=== PATIENT | female | born 1965 | race Caucasian/White ===

== ENCOUNTER 2018-02-16 05:27 | Observation (INO) | payer BC ==
[2018-02-16] MEDS ORDERED: NS 0.9% 1000 ML* 1,000 ML IV ONE (06:05)
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
[2018-02-16 07:11] LABS: Hematocrit 28 % (35-47); Hemoglobin 8.2 g/dl (12.0-16.0); Mean Corpuscular HGB Conc 30 g/dl (31-36); Mean Corpuscular Hemoglobin 16 pg (27-31); Mean Corpuscular Volume 55 fL (80-97); Mean Platelet Volume 8.4 um3 (7.4-10.4); Platelet Count 200 10^3/ul (150-450); Red Blood Count 5.06 10^6/ul (4.00-5.40); Red Cell Distribution Width 26 % (10.5-15); White Blood Count 6.1 10^3/ul (3.5-10.8)
[2018-02-16 07:14] LABS: INR 0.86 (0.77-1.02)
[2018-02-16 07:18] LABS: EGFR Non-African American 90.1 (>60)
[2018-02-16 07:32] LABS: ABS Basophils 0.1 10^3/ul (0-0.2); ABS Eosinophils 0.1 10^3/ul (0-0.6); ABS Lymphocytes 1.8 10^3/ul (1.0-4.8); ABS Monocytes 0.4 10^3/ul (0-0.8); ABS Neutrophils 3.7 10^3/ul (1.5-7.7); ABS Nucleated RBC 0 10^3/ul; Eosinophil % 1.9 % (0-6); Lymphocyte % 30.1 % (25-47); Nucleated Red Blood Cells % 0.1
--- NOTE | 2018-02-16 07:57 | RAD ---
HISTORY: DIAZ, recent PNA COMPARISONS: None VIEWS: 4: Frontal dual-energy and lateral views of the chest. FINDINGS: CARDIOMEDIASTINAL SILHOUETTE: The cardiomediastinal silhouette is normal. LEIGH: The leigh are normal. PLEURA: The costophrenic angles are sharp. No pleural abnormalities are noted. LUNG PARENCHYMA: There is hyperinflation with flattening of the diaphragm and expansion of the AP diameter of the chest. ABDOMEN: The upper abdomen is clear. There is no subphrenic gas. BONES AND SOFT TISSUES: No bone or soft tissue abnormalities are noted. OTHER: None. IMPRESSION: HYPERINFLATION, CONSISTENT WITH COPD. NO ACTIVE CARDIOPULMONARY DISEASE.
[2018-02-16] MEDS ORDERED: Iohexol 300* (CONTRAST) 10 ML SDV IV ONE (08:13)
[2018-02-16] MEDS ORDERED: Metoclopramide IV* 5 MG/ML 2 ML VIAL IV ONE (08:14)
[2018-02-16] MEDS ORDERED: diPHENhydraMINE IV* 50 MG/ML 1 ml VIAL (BENADRYL) IV ONE (08:14)
[2018-02-16 08:22] LABS: Urine Appearance Clear; Urine Blood Negative (Negative); Urine Color Yellow; Urine Ketones Negative (Negative); Urine Protein Negative (Negative); Urine Specific Gravity 1.013 (1.010-1.030); Urine Urobilinogen Negative (Negative)
--- NOTE | 2018-02-16 08:42 | RAD ---
HISTORY: headache, dizziness, history of "brain lesion" 8 years ago. COMPARISONS: None available at the time of dictation TECHNIQUE: Multiple contiguous axial CT scans were obtained of the head with and without intravenous contrast. FINDINGS: HEMORRHAGE/INFARCT: There is no hemorrhage or acute infarct. MASSES/SHIFT: There is no mass or shift. EXTRA-AXIAL SPACES: There are no extra-axial fluid collections. SULCI AND VENTRICLES: The sulci and ventricles are normal in size and position for the patient's stated age. CEREBRUM: There are no focal parenchymal abnormalities. BRAINSTEM: There are no focal parenchymal abnormalities. CEREBELLUM: There are no focal parenchymal abnormalities. VESSELS: The vessels are grossly normal. PARANASAL SINUSES: The paranasal sinuses are clear. ORBITS: The orbits are unremarkable. BONES AND SOFT TISSUE: No bone or soft tissue abnormalities are noted. OTHER: There is no abnormal enhancement. There is no CT finding to correspond to the history of "brain lesion" described on the previous examination. IMPRESSION: 1. NO ACUTE INTRACRANIAL PATHOLOGY. 2. THERE IS NO ABNORMAL ENHANCEMENT. THERE IS NO CT FINDING TO CORRESPOND TO THE HISTORY OF "BRAIN LESION" DESCRIBED ON THE PREVIOUS EXAMINATION. RECOMMEND COMPARISON TO PREVIOUS IMAGING.
[2018-02-16] MEDS ORDERED: Ketorolac INJ* 30 MG/ML 1 ML VIAL IV PUSH ONE (09:51)
[2018-02-16] MEDS ORDERED: Acetaminophen TAB* 325 MG PO PRN (11:46)
[2018-02-16] MEDS ORDERED: diPHENhydraMINE IV* 25 MG in NS 0.9% 50 ML* 50 ML IVPB PRN (11:46)
[2018-02-16] MEDS ORDERED: PROCHLORPERAZINE INJ 5 MG/ML 2 ML VIAL IV PRN ×2 (11:46→11:58)
[2018-02-16] MEDS ORDERED: diPHENhydraMINE IV* 50 MG/ML 1 ml VIAL (BENADRYL) SLOW PUSH PRN (11:57)
[2018-02-16] MEDS: Ferrous Sulfate TAB* 325 MG PO SCH ×2 (12:18→20:32)
[2018-02-16] MEDS ORDERED: Magnesium Sulfate 1 GM IV* 1 GM/100 ML BAG IV ONE (12:30)
[2018-02-16] MEDS: NS 0.9% 1000 ML* 1,000 ML IV SCH (14:04)
--- NOTE | 2018-02-16 15:02 | HP ---
ADMISSION HISTORY AND PHYSICAL: DATE OF ADMISSION: 02/16/18 PRIMARY CARE PROVIDER: The patient has no primary care provider. MY ATTENDING WHILE IN THE HOSPITAL: Winnie Huggins MD* (DICTATED BY JOCY SIMMONS) CHIEF COMPLAINT: Dizziness and headache for 3 days. HISTORY OF PRESENT ILLNESS: Ms. Loaiza is a 52-year-old female with past medical history significant for migraines, menorrhagia and ovarian cyst and anemia who presents with dizziness, nausea, vomiting, and frontal pounding headache with associated photophobia as well as presyncope several times, not associated with standing. The patient states that this has happened to her before about 8 years ago in conjunction with her migraines. She actually did have a syncopal episode at that time, which was related to dehydration associated with poor oral intake due to nausea and vomiting from headaches. The patient was started on Imitrex at that time, which did a reasonably good job to control her headaches. The patient describes her dizziness as the room spinning, not disequilibrium. The patient states that when her headaches are at their worst, she feels like her vision gets blurry. The patient has been having very poor oral intake, eating only a couple of tater tots and drinking 2 bowls of water yesterday. The patient describes her headache as a band around her head, particularly in the front, not reproducible with palpation which occasionally goes on the back of her neck, but that is infrequent. The patient gets moderate relief from Tylenol and ibuprofen which she has been taking about every 4 to 8 hours for the past 3 days. The patient is also concerned because she has been told that she snores and stops breathing while she sleeps and is concerned that her poor sleep is contributing to her headaches. In the emergency department, the patient was found to be anemic with a pattern of severe iron deficiency and microcytosis. The patient states she has intermittent irregular periods but when she does have them, they are heavy lasting approximately 5 days with 3 to 4 saturated pads daily. The patient has never had this evaluated. The patient has never been on hormonal or other control for her periods. The patient has not had a Pap smear in 7 to 8 years, but her most recent one was normal except for finding of ovarian cysts. The patient has not had any recent illnesses except for pneumonia in September for which she was treated with an unknown antibiotic and this resolved quickly without any lingering course. In the emergency department, the patient received Reglan, Benadryl, Toradol which improved her headache, but failed to abort it completely. The patient was concerned about her ability to function if these headaches continued and we were asked to evaluate for admission due to intractable migraine with debilitating symptoms. The patient states that she feels like whenever she eats, she has associated diarrhea without melena or hematochezia. The patient had a CT during the evaluation of her migraines 8 years ago and had a brain lesion identified. PAST MEDICAL HISTORY: 1. Migraines. 2. Menorrhagia. 3. Ganglion cysts. 4. Ovarian cysts. 5. Anemia. PAST SURGICAL HISTORY: Ganglion cyst removal. MEDICATIONS: 1. Tylenol 500 mg p.o. q.6 hours. 2. Ibuprofen 400 mg q.6 hours. ALLERGIES: No known drug allergies. FAMILY HISTORY: The patient's father of brain cancer. The patient's mother of a stroke. The patient has 2 sisters who are alive and healthy. The patient has a brother who of complication of diabetes. The patient has a son with congenital heart defect as well as a daughter who of complications of a congenital heart defect. SOCIAL HISTORY: The patient has less than 100 lifetime cigarettes smoked. The patient denies alcohol or drug abuse. 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 The patient is and has 5 children. The patient would like her surrogate decision maker to be her sister, Fabrice French. REVIEW OF SYSTEMS: A 14-point review of systems was reviewed and is negative except as above. PHYSICAL EXAMINATION GENERAL: The patient is a 52-year-old female who appears stated age and is sitting in the bed in moderate distress from pain. VITAL SIGNS: At the time of evaluation, temperature 98.4, pulse rate 67, respiratory rate 18, oxygen saturation 100% on room air, blood pressure 120/67. HEENT: Head: Normocephalic, atraumatic. Sclerae anicteric. No conjunctival injection. Nasal mucosa moist. Oral mucosa moist. No pharyngeal erythema, discharge, or exudate. Tenderness to light touch over the forehead in the area of the patient's headache. NECK: Supple, nontender. No lymphadenopathy. No carotid bruit auscultated. No JVD. RESPIRATORY: Clear to auscultation bilaterally. No wheezes, rales, or rhonchi. Good air exchange bilaterally. CARDIAC: Regular rate and rhythm. No clicks, murmurs, gallops, or rubs. Pulses 2+ in the bilateral dorsalis pedis, posterior tibialis, and radial areas. No bilateral lower extremity edema or calf tenderness noted. ABDOMEN: Soft, nontender, nondistended. Bowel sounds present. Normoactive in all 4 quadrants. No hepatosplenomegaly. No abdominal bruits auscultated. GENITOURINARY: No suprapubic or CVA tenderness. NEUROLOGICAL: Cranial nerves II through XII intact. No nystagmus. Alert and oriented x3. Strength preserved in the upper and lower extremities distally and proximally. Sensation to light touch in the upper and lower extremities normal distally and proximally. Reflexes 1+ in bilateral biceps and patellar areas. [id number] performed without difficulty. The patient staggers upon standing with no associated nystagmus, though she keeps her eyes closed upon standing. Romberg negative. No pronator drift. Normal gait. PSYCHIATRIC: Pleasant and cooperative. SKIN: Clean, dry, intact. No rash. LABORATORY DATA/DIAGNOSTIC STUDIES: White blood cell count 6.1, hemoglobin 8.2 , hematocrit 28, MCV 65, MCH 16, MCHC 30, RDW 26, platelet count 200,000. INR 0.86. APTT 28.4. D-dimer less than 200. Sodium 138, potassium 3.9, chloride 106, carbon dioxide 27, anion gap 5, BUN 13, creatinine 0.69, glucose 101. Hemoglobin A1c is 6.2. Lactic acid 1. Calcium 9.1. Magnesium 2.1. Iron 18. TIBC 444, percent saturation 4, transferrin 317, ferritin 3.8. Bilirubin 0.4, AST 17, ALT 15, alkaline phosphatase 74. Troponin I 0.00. CRP 1.14. BNP 39. Total protein 6.5. Albumin 3.7, globulin 2.8. TSH 1.89. Urine normal. Tylenol less than 15. EKG shows normal sinus rhythm, no ST segment abnormalities, no hypertrophy and enlargement, rate of 56, QTc of 419, no other abnormalities. Chest x-ray read as hyperinflation consistent with COPD, no active cardiopulmonary disease. Brain CT read as no acute intracranial pathology. There is no abnormal enhancement. There is no CT finding corresponding to the history of brain lesion described in the previous examination, directly in comparison to previous imaging. ASSESSMENT AND PLAN: Ms. Loaiza is a 52-year-old female with past medical history significant for migraines and anemia who presents to the emergency department for intractable migraine with associated dizziness, nausea, and vomiting resistant to oral medication at home as well as IV medication in the emergency department. The patient will be admitted to the hospital observation for migraine treatment as well as treatment of iron deficiency anemia. 1. Migraines. The patient has frontal migraines which are pounding associated with photophobia, nausea, vomiting, and dizziness. The patient has had these headaches for a long period of time, at least 8 years and they have previously been this bad 8 years ago and was controlled with Imitrex. The patient at that time also had poor oral intake and syncope. The patient at this time has poor oral intake due to nausea and vomiting associated with her migraines and her headaches have not gone away with both oral and IV pain medications. The patient will be admitted to the hospital. The patient will be given Compazine and Benadryl every 6 hours as needed for headache. Neurological consultation will be obtained for recommendations on abortive and prophylactic treatment for the patient's migraines. The patient had a brain CT, which was normal showing no signs of the reported brain lesion. The patient will be given magnesium. Additional plan pending neuro consultation. 2. Anemia. The patient has severe iron deficiency anemia, likely longstanding due to microcytosis. Ferritin of 3.8, percent saturation of 4, and iron of 18. The patient will be started on iron supplementation. The patient should be seen outpatient by her primary care provider and consideration for hormonal control of her menorrhagia or additional medications such as Lysteda, IUD or uterine ablation should be considered upon discharge. It should be considered giving the patient every other day dosing for her iron due to possible increased absorption with this method of administration. 3. Snoring. Observed sleep apnea. The patient has broad neck, arching palate and obesity with BMI of 37.9. We will obtain overnight pulse oximetry to assess for possible obstructive sleep apnea to guide whether or not the patient should have followup sleep study and CPAP and positive pressure therapy while sleeping, as poor sleep may be contributing to the patient's migraines and generally adversely affecting her health. 4. Prediabetes. The patient has hemoglobin A1c in the emergency department of 6.2. Due to the patient's current treatment for migraines, we will not initiate therapy at this time. Would recommend followup with primary care provider to discuss the pros and cons of being started on metformin as well as dietary and lifestyle modifications to help slow the progression of diabetes. 5. FEN. The patient will have regular unrestricted diet, fluids 75 mL an hour. 6. DVT prophylaxis. The patient is moderate risk. The patient will have SCDs and encouraged to ambulate. 7. Code status. The patient would like to be a full code. The patient would like her surrogate decision maker to be her sister, Fabrice French. TIME SPENT: Approximately 60 minutes were spent on this admission, 30 of which were spent [id number] with the patient obtaining history and physical and discussing treatment plan. The plan has been discussed with my attending, Dr. Winnie Huggins, she is in agreement. JOCY SIMMONS [id number]/[facility] #: [id number] BAR
[2018-02-16] MEDS ORDERED: Ketorolac INJ* 30 MG/ML 1 ML VIAL IM PRN (16:27)
[2018-02-16] MEDS ORDERED: SUMAtriptan TAB* 100 MG PO ONE (16:30)
[2018-02-16] MEDS: Valproic Acid IV(*) 500 MG in NS 0.9% 100 ML* 100 ML IVPB SCH (17:21)
--- NOTE | 2018-02-16 19:23 | CONS ---
CONSULTATION REPORT: DATE OF CONSULT: 02/16/18 REQUESTING PRACTITIONER: JOCY Ashby REASON FOR CONSULT: Intractable migraine. HISTORY OF PRESENT ILLNESS: Michela Loaiza is a 52-year-old woman with history of migraine who presented to the emergency room with 3 to 4 days of intractable headache, which has been severe along with a new symptom of spinning sensation when standing and found to have significant anemia in the setting of menorrhagia. Michela Loaiza indicates that she has had headaches since she was 20. She gets headaches every day and she is not sure how long they have been daily. She describes her current headache as bilateral temporal and in the back of the head, currently rated at an 8.5/10 with throbbing, photophobia, and phonophobia , nausea and vomiting. She had received ketorolac along with Compazine, Reglan and Benadryl in the emergency room and had reduction of her headache to a 2/10; unfortunately it is back to 8.5/10. She has not had health insurance for 8 years and has not been on medications recently for migraine. She is unaware of any previous prophylactic medication for migraine. She had used Imitrex 50 mg in the past and it had helped her. She denies any double vision, loss of vision, any difficulty with coordination of arms or legs. She does feel as if the vertiginous feelings are worse with standing. She denies any fever, neck pain. She does note that her vision can get blurry when she has headaches and she thinks her speech may be more slurred when she has headaches. There has been no associated numbness or weakness of arms or legs. She does have a significant history of anxiety and depression and when she was a teenager, was hospitalized more than once for suicidal ideation and wrist slashing. She indicates she is not suicidal, although she does have some depression. She in the past had been on Zoloft and she described herself as "mean" on Zoloft. She also tells me she was on Mellaril, which dropped her blood pressure. PAST MEDICAL HISTORY: Michela Loaiza's past medical history includes migraine , menorrhagia with clots. She indicates she can black out with her menstrual cycle and there is also increased headache. She is not having her menstrual cycle at this time. She has a history of ovarian cyst, ganglion cyst with 1 removed from her left hand, anemia, and she has had tubal ligation. There is history of anxiety and depression with suicidal attempts in teen years. CURRENT MEDICATIONS: Include: 1. Acetaminophen 650 mg p.o. q.6 hours p.r.n. fever or pain. 2. Benadryl 25 mg IV q.6 hours p.r.n. agitation. 3. Ferrous sulfate 325 mg p.o. b.i.d. 4. Compazine 10 mg IV q.6 hours p.r.n. headache. 5. Sodium chloride 1000 mL running at 75 mL an hour IV. ALLERGIES: She has no known drug allergies. FAMILY HISTORY: Her father at age 55 of brain cancer, unknown type. Her mother at age 63 of stroke. She does not know what other medical problems she had, as she did not go to a doctor. Her brother at 55 of diabetes, myocardial infarction with "other medical problems". She has 2 sisters who she believes are healthy. She has 5 children; 1 daughter of congenital heart defect, another son does have a congenital heart defect, and the other 3 are healthy. SOCIAL HISTORY: She does not smoke, does not drink alcohol. 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 She lives in the same building as her sister. She moved from [place] in June and indicates she had "left the stress behind." REVIEW OF SYSTEMS: She has had some blurry vision with headaches, but no loss of vision. She can get shortness of breath with dizziness and with climbing stairs. She denies any chest pain or palpitations. There has been no numbness or weakness of arms or legs. She denies any change in bowel or bladder habits other than the fact that her bowel movement frequency has decreased over time. She only eats 1 meal a day. She may have a little stress, but as mentioned above, she feels that she left most of it behind in [place]. Mental health is as mentioned above. She has lost 18 pounds since October, eating 1 meal a day. She has had no drenching night sweats or high fevers for unknown reason. She does not sleep well, sleeping about 2 to 3 hours a night. She has been told that she snores and stops breathing. She is yet to be worked up for sleep apnea. She drinks only 1 caffeinated tea every other day. She denies any joint problems. There have been no skin conditions. PHYSICAL EXAM: Michela Loaiza'clarence temperature was 98.4 degrees Fahrenheit, blood pressure 123/61, pulse was 62, respiratory rate 18, saturation was 100% on room air. She had a normal S1, S2. No murmur. No carotid bruit. Her lungs were clear to auscultation. She appeared uncomfortable, worse when standing up. She was in a dark room. Her pupils were equal and responsive to light. I had difficulty visualizing her fundi. She had full extraocular movements with no nystagmus and full razo to confrontation. Her facial expression, sensation and hearing were equal. Palate was upgoing. Tongue was midline. Sternocleidomastoid and trapezius were 5/5 in strength. There was normal bulk and tone. No pronator drift. She gave good strength in her upper and lower extremities with normal [id number]-[id number] and eioi-oq-vove movements. Vibration sensation was decreased by about 15 seconds at the large toes. Proprioception was intact. There was no asymmetry to pinprick, cold, or light touch. She had no dysmetria in her limbs. When she stood, there was no evidence of ataxia, but she was very uncomfortable and therefore, we got her back into bed. Her reflexes were 2+ and symmetric in the upper and lower extremities. Toes were flexor response. DIAGNOSTIC STUDIES/LAB DATA: Includes chest x-ray which showed hyperinflation consistent with COPD, but no active cardiopulmonary disease. Her CT of the brain was read as showing no acute pathology. This was done with contrast and no enhancement was noted. This film was reviewed directly. Of note, there was a note in the report that no finding was noted to correspond with brain lesion on previous examination. The patient did not give history of this report and I do not see previous imaging in our system. Her laboratory tests include CBC with normal white count and platelets; however , hemoglobin and hematocrit of 8.2 and 28. D-dimers were less than 200. Her complete metabolic panel showed an elevated glucose at 101. Hemoglobin A1c was elevated at 6.2. Iron was low at 18, percent saturation 4, ferritin low at 3.8. Alk phos, ALT and AST were within normal limits. Troponin was 0. C- reactive protein was 1.14. TSH was 1.89. Urinalysis was negative. IMPRESSION: A 52-year-old woman with longstanding history of migraines, now with very severe migraines in the last 3 days associated with vertiginous symptoms and findings of iron deficiency. Her examination at this point is nonfocal and I am not seeing any evidence of nystagmus, ataxia, dysmetria on history, with no focal findings on examination. Her symptoms are most consistent with migraine; severe headache which is throbbing with photophobia, phonophobia, nausea, and vomiting. Her BICYCLE RACER imaging with CT did not show any significant pathology. At this point, she is being hydrated and has received magnesium in the emergency room. With treatment with antiemetic, Benadryl and ketorolac, her headache went from an 8.5 to a 2. We will continue this regimen. I also gave a dose of Imitrex as this has worked in the past and I am not finding any contraindication on history or examination. We will add in Depacon 500 mg IV q.8 hours to try to break the headache. She may benefit from an alternative prophylaxis as an outpatient. With her history of depression, Effexor may be helpful. We talked about topiramate as another possibility; however, it would take time to get onto this prophylactic medication. This can be associated with weight loss. She does have significant truncal obesity noted just by observation, and history suggesting a sleep apnea. Weight loss along with evaluation in sleep clinic could be helpful. Sleep apnea certainly could be contributing to her symptoms, her lack of sleep could be contributing significantly to her symptoms. If all of the above does not work and she still has intractable headache in the morning, one may want to consider 1000 mg of Solu-Medrol in a liter of fluids slowly infused at 100 mL an hour. Education was given regarding migraine, intractable migraine, approach to care, medications used, planned medications, importance of treating mood, importance of sleep, exercise, treating sleep apnea. TIME SPENT: Over an hour and a half was spent in patient care. All questions were answered. [id number]/[facility] #: [id number] BAR
[2018-02-16] MEDS ORDERED: Ferrous Sulfate TAB* 325 MG PO SCH (21:00)
[2018-02-17] MEDS: Valproic Acid IV(*) 500 MG in NS 0.9% 100 ML* 100 ML IVPB SCH ×2 (02:15→08:08)
[2018-02-17] MEDS: NS 0.9% 1000 ML* 1,000 ML IV SCH (03:32)
[2018-02-17 06:28] LABS: ABS Basophils 0.1 10^3/ul (0-0.2); ABS Eosinophils 0.2 10^3/ul (0-0.6); ABS Lymphocytes 1.8 10^3/ul (1.0-4.8); ABS Monocytes 0.3 10^3/ul (0-0.8); ABS Neutrophils 2.9 10^3/ul (1.5-7.7); ABS Nucleated RBC 0 10^3/ul; Hematocrit 27 % (35-47); Hemoglobin 8.5 g/dl (12.0-16.0); Lymphocyte % 33.9 % (25-47); Mean Corpuscular HGB Conc 31 g/dl (31-36); Mean Corpuscular Hemoglobin 17 pg (27-31); Mean Corpuscular Volume 55 fL (80-97); Mean Platelet Volume 8.3 um3 (7.4-10.4); Nucleated Red Blood Cells % 0.1; Platelet Count 162 10^3/ul (150-450); Red Blood Count 4.96 10^6/ul (4.00-5.40); Red Cell Distribution Width 26 % (10.5-15); White Blood Count 5.2 10^3/ul (3.5-10.8)
[2018-02-17 06:35] LABS: EGFR Non-African American 96.5 (>60)
[2018-02-17] MEDS: Ferrous Sulfate TAB* 325 MG PO SCH (08:08)
[2018-02-17 12:11] VITALS: BP 131/56
--- NOTE | 2018-02-18 10:54 | DS ---
AMENDED REPORT NOW INCLUDES COSIGNER DESIGNATION - ESIGNED BEFORE ADUSTMENTS CC: [facility]; Dr. Sun; Dr. Suárez * DISCHARGE SUMMARY: DATE OF ADMISSION: 02/16/18 DATE OF DISCHARGE: 02/17/18 PATIENT OF: Dr. Winnie Huggins. ADMITTING PHYSICIAN: Dr. Winnie Huggins.* (DICTATED BY JOCY PERSAUD) ATTENDING HOSPITALIST: Dr. Thais Burns. ADMISSION DIAGNOSES: 1. Headache and dizziness. 2. History of migraine headaches. 3. Nausea and vomiting. 4. Menorrhagia. 5. History of a ganglion cyst and ovarian cysts. 6. Chronic anemia. DISCHARGE DIAGNOSES: 1. Headache and dizziness. 2. History of migraine headaches. 3. Nausea and vomiting. 4. Menorrhagia. 5. History of a ganglion cyst and ovarian cysts. 6. Chronic anemia. CONSULTATIONS: Dr. Harmony Martinez from Neurology. PROCEDURES: None. BRIEF MEDICAL HISTORY: Ms. Loaiza is a 52-year-old female with past medical history significant for migraine headaches, menorrhagia, ovarian cysts, and anemia who presented to the emergency room with 3 days history of worsening frontal bounding headaches with associated photophobia, brief syncope, as well as nausea and vomiting. The patient notes long-standing history of migraine headaches, for which she has been having occasional ocular symptoms on and off, however never been that severe before. She recalled a similar episode about 8 years ago, for which she actually did have a syncopal episode at that time related to dehydration and poor oral intake. She states that she had Imitrex at that time, which did reasonably well to control her headaches. At this time , she describes some dizziness as the room were spinning but denied any actual loss of consciousness or any other associated symptoms. She denies having an aura before; however, she does occasionally experience associated photophobia as well. She denies any chocolate or wine intake. She was evaluated in the emergency room and given some IV fluids as well as Toradol for pain. She continued to have some pounding headaches mostly frontal with associated nausea but no vomiting as well as inability to tolerate p.o. intake, for which she was admitted for observation. HOSPITAL COURSE: The patient was admitted under hospitalist services and Neurology consult was obtained by Dr. Martinez who saw the patient that afternoon. The patient was given some Compazine and Benadryl every 6 hours in the emergency room and during admission. Neurological checks were obtained and brain CT from the ED showed no evidence of any acute disease. The patient eventually had multiple bags of IV fluid hydration. She felt much better the following morning and she was up eating regular diet for breakfast. She was given Imitrex on an as-needed basis and also recommendation was made by neurologist for the patient to have some sort of prophylactic medicine upon discharge including Effexor since she has history of depression. Her laboratory workup revealed evidence of anemia, which has been chronic for the patient due to long-standing history of menorrhagia. She tells me that she has not seen any primary care physician in the last 4 years since she lost her insurance, but now she does have health insurance and wishes to have medical care. She denied any dizziness or shortness of breath. Her physical exam today revealed equal pupils and moist mucous membranes. Her trachea was midline. Her lungs were clear to auscultation bilaterally. Her heart was regular rate and rhythm without rubs, murmurs, or gallops. Her neurological exam was essentially benign. She had good bilateral hand steel melter and her tongue was midline. She had the windows opened with daylight in the room and she denied any recurrent headaches or photophobia. I have discussed the case with Dr. Perrin today and she recommended that the patient will be discharged on Effexor 37.5 mg daily and will follow up with Dr. Martinez in 4 to 6 weeks. The patient also has a history of sleep apnea; however, she has never had any sleeping study and the plan will be addressed upon discharge for her to follow up with [facility] to prioritize her medical needs and eventually we will set her up with a primary care physician in the area locally. DISCHARGE MEDICATIONS: Include: 1. Effexor 37.5 mg p.o. daily. 2. Ferrous sulfate 325 mg p.o. b.i.d. JOCY PERSAUD [id number]/[facility] #: [id number] BAR
== END 2018-02-17 14:50 | disposition home or self-care (01) ==
LOC: ED 05:27 → MED 11:56
PROVIDERS: ADMIT Hospitalist; ATTEND Internal Medicine
DX: G43.909 Migraine, unspecified, not intractable, without status migrainosus (principal); R51 Headache; R42 Dizziness and giddiness; R11.2 Nausea with vomiting, unspecified; N92.0 Excessive and frequent menstruation with regular cycle; R06.83 Snoring; R73.03 Prediabetes; D50.9 Iron deficiency anemia, unspecified; Z79.899 Other long term (current) drug therapy; N83.209 Unspecified ovarian cyst, unspecified side; M67.40 Ganglion, unspecified site; R00.1 Bradycardia, unspecified
CPT/HCPCS: 36415; 70470; 71046; 80048; 80053; 80329; 81003; 82272; 82728; 83036; 83540; 83550; 83605; 83735; 83880; 84443; 84484; 85025; 85060; 85379; 85610; 85730; 86140; 93005; 96365; 96372; 96375; 99285; A9270-GY; G0378; G0480; J1200; J1885; J2765; J3475; Q9967

== ENCOUNTER 2018-08-05 01:31 | Inpatient (IN) | payer BC ==
--- NOTE | 2018-08-05 02:03 | ED ---
Psychiatric Complaint - HPI Summary HPI Summary: This patient is a 52 year old female that was brought in by the police after she attempted to overdose on sleeping pills in the [place] of [employer] [facility] where [place]. Apparently earlier that day the patient left a note for her coworkers that they dont need to worry about her anymore. She states the stress in her life has been too much for her recently. She states she melted down today. The medication was an unknown OTC medication. - History Of Current Complaint Chief Complaint: [facility]entalHealth Time Seen by Provider: 08/05/18 01:55 Hx Obtained From: Patient Onset/Duration: Still Present Timing: Constant Severity Initially: Mild Severity Currently: Mild Character: Depressed, Frustrated Aggravating Factor(s): Recent Stress Has Suicidal: Reports: Thoughts, With A Plan, Demonstrates Gesture - Allergies/Home Medications Allergies/Adverse Reactions: Allergies Allergy/AdvReac Type Severity Reaction Status Date / Time Fish Containing Products Allergy Hives/Diff. Verified 08/05/18 01:38 Breathing/I tching Home Medications: Home Medications NK [No Home Medications Reported] 08/05/18 [History Confirmed 08/05/18] PMH/Surg Hx/FS Hx/Imm Hx Endocrine/Hematology History: Reports: Hx Anemia - no tx Denies: Hx Anticoagulant Therapy, Hx Blood Disorders, Hx Thyroid Disease Cardiovascular History: Reports: Hx Hypercholesterolemia - may have had this in the past - no meds Denies: Hx Aneurysm, Hx Atrial Fibrillation, Hx Congenital Heart Disease, Hx Congestive Heart Failure, Hx Coronary Artery Disease, Hx Deep Vein Thrombosis, Hx Hypertension, Hx Myocardial Infarction, Hx Valvular Heart Disease Respiratory History: Reports: Hx Pneumonia - "B/L PNA 2 months ago" Denies: Hx Asthma, Hx Chronic Obstructive Pulmonary Disease (COPD) GI History: Denies: Hx Cirrhosis, Hx Crohn's Disease, Hx Diverticulosis, Hx Gastroesophageal Reflux Disease, Hx Gastrointestinal Bleed, Hx Irritable Bowel, Hx Ulcer Musculoskeletal History: Denies: Hx Arthritis Sensory History: Reports: Hx Contacts or Glasses, Other Sensory Impairments - h/ o vessels tear -scarred and healing Denies: Hx Macular Degeneration, Hx Hearing Aid Opthamlomology History: Reports: Hx Contacts or Glasses, Other Sensory Impairments - h/o vessels tear -scarred and healing Denies: Hx Macular Degeneration Neurological History: Reports: Hx Headaches - daily Denies: Hx CVA Psychiatric History: Denies: Hx Anxiety - Immunization History Date of Tetanus Vaccine: unk Date of Influenza Vaccine: none Infectious Disease History: No Infectious Disease History: Denies: Traveled Outside the [place] in Last 30 Days - Family History Known Family History: Positive: Hypertension - Social History Occupation: Employed Full-time Alcohol Use: Rare Hx Substance Use: No Substance Use Type: Reports: None Hx Tobacco Use: No Smoking Status (MU): Never Smoked Tobacco Review of Systems Negative: Fever Positive: Other - SI and she is stressed All Other Systems Reviewed And Are Negative: Yes Physical Exam - Summary Physical Exam Summary: VITAL SIGNS: Reviewed. GENERAL: Patient is a well-developed and nourished FEMALE who is lying comfortable in the stretcher. Patient is not in any acute respiratory distress. HEAD AND FACE: No signs of trauma. No ecchymosis, hematomas or skull depressions. No sinus tenderness. EYES: PERRLA, EOMI x 2, No injected conjunctiva, no nystagmus. EARS: Hearing grossly intact. Ear canals and tympanic membranes are within normal limits. MOUTH: Oropharynx within normal limits. NECK: Supple, trachea is midline, no adenopathy, no JVD, no carotid bruit, no c- spine tenderness, neck with full ROM. CHEST: Symmetric, no tenderness at palpation LUNGS: Clear to auscultation bilaterally. No wheezing or crackles. CVS: Regular rate and rhythm, S1 and S2 present, no murmurs or gallops appreciated. ABDOMEN: Soft, non-tender. No signs of distention. No rebound no guarding, and no masses palpated. Bowel sounds are normal. EXTREMITIES: FROM in all major joints, no edema, no cyanosis or clubbing. NEURO: Alert and oriented x 3. No acute neurological deficits. Speech is normal and follows commands. SKIN: Dry and warm Triage Information Reviewed: Yes Vital Signs On Initial Exam: Initial Vitals Temp Pulse Resp BP Pulse Ox 98 F 75 16 126/39 100 08/05/18 01:35 08/05/18 01:35 08/05/18 01:35 08/05/18 01:35 08/05/18 01:35 Vital Signs Reviewed: Yes Diagnostics - Vital Signs Vital Signs Temp Pulse Resp BP Pulse Ox 08/05/18 01:35 98 F 75 16 126/39 100 - Laboratory Result Diagrams: 08/05/18 02:52 08/05/18 02:52 Lab Statement: Any lab studies that have been ordered have been reviewed, and results considered in the medical decision making process. Course/Dx - Course Assessment/Plan: This patient is a 52 year old female that was brought in by the police after she attempted to overdose on sleeping pills in the middle of [employer], where she [place]. Apparently earlier that day the patient left a note for her coworkers that they dont need to worry about her anymore. She states the stress in her life has been too much for her recently. She states she melted down today. The medication was an unknown OTC medication. After a MHE by Dr. Reilly the patient will be an involuntary admission for depression. - Differential Dx/Clinical Impression Provider Diagnosis: Depression Discharge - Sign-Out/Discharge Documenting (check all that apply): Patient Departure - admitted - Discharge Plan Condition: Fair Disposition: [facility]IATRIC FACILITY[facility] [place] Referrals: Genaro Chappell MD [Primary Care Provider] - - Attestation Statements Document Initiated by Scribe: Yes Documenting Scribe: Sajan Hernandez Provider For Whom Laceye is Documenting (Include Credential): Francisca Canada MD Scribe Attestation: Sajan Park , scribed for Francisca Canada MD on 08/05/18 at 0624. Status of Scribe Document: Ready
[2018-08-05 03:16] LABS: Urine Appearance Cloudy; Urine Blood 3+ (Negative); Urine Color Straw; Urine Ketones Negative (Negative); Urine Protein Negative (Negative); Urine Red Blood Cell 3+(>10/hpf) (Absent); Urine Specific Gravity 1.006 (1.010-1.030); Urine Urobilinogen Negative (Negative); Urine White Blood Cell Absent (Absent)
[2018-08-05 03:26] LABS: ABS Basophils 0.1 10^3/ul (0-0.2); ABS Eosinophils 0.1 10^3/ul (0-0.6); ABS Lymphocytes 1.7 10^3/ul (1.0-4.8); ABS Monocytes 0.3 10^3/ul (0-0.8); ABS Neutrophils 3.2 10^3/ul (1.5-7.7); ABS Nucleated RBC 0 10^3/ul; Hematocrit 29 % (35-47); Hemoglobin 8.8 g/dl (12.0-16.0); Lymphocyte % 32.2 %; Mean Corpuscular HGB Conc 31 g/dl (31-36); Mean Corpuscular Hemoglobin 17 pg (27-31); Mean Corpuscular Volume 57 fL (80-97); Mean Platelet Volume 8.1 fL (7.4-10.4); Nucleated Red Blood Cells % 0; Platelet Count 383 10^3/ul (150-450); Red Blood Count 5.04 10^6/ul (4.00-5.40); Red Cell Distribution Width 23 % (10.5-15); White Blood Count 5.4 10^3/ul (3.5-10.8)
[2018-08-05 03:31] LABS: EGFR Non-African American 94.8 (>60)
[2018-08-05] MEDS ORDERED: Al Hydrox/Mg Hydrox/Simet LIQ* 30 ML UDC PO PRN (13:42)
[2018-08-05] MEDS ORDERED: hydrOXYzine HCL TAB* 50 MG PO PRN (13:44)
--- NOTE | 2018-08-05 14:15 | PN ---
ED Flex Patient Progress Note Date of Service: 08/05/18 Subjective: This is a 52 year-old F who is pending admission to [facility] / transfer to another psychiatric facility / discharge to home / or being observed secondary to SI. Pt. examined in bed 21 around 0900. She is resting comfortably. Objective: Vitals: Most recent vital signs documented below. General NAD Laboratory: Current laboratory results documented below. Assessment: Pending admission to U. Last O2 saturation was reported as 89% on RA suspect this was a typo. Repeat pulse ox at 1408 is 100% on RA. Plan: Pending psychiatric or medical consultation to observe / transfer / admit / discharge will follow up daily . Vital Signs Temp Pulse Resp BP Pulse Ox 97.8 F 62 18 134/70 89 08/05/18 04:15 08/05/18 04:15 08/05/18 04:15 08/05/18 04:15 08/05/18 04:15 Lab Results - Entire Visit 08/05/18 08/05/18 08/05/18 02:52 02:52 02:45 WBC 5.4 RBC 5.04 Hgb 8.8 L Hct 29 L MCV 57 L MCH 17 L MCHC 31 RDW 23 H Plt Count 383 MPV 8.1 Neut % (Auto) 59.8 Lymph % (Auto) 32.2 [place] % (Auto) 4.9 Eos % (Auto) 2.0 Baso % (Auto) 1.1 Absolute Neuts (auto) 3.2 Absolute Lymphs (auto) 1.7 Absolute Monos (auto) 0.3 Absolute Eos (auto) 0.1 Absolute Basos (auto) 0.1 Absolute Nucleated RBC 0 Nucleated RBC % 0 Sodium 139 Potassium 4.1 Chloride 106 Carbon Dioxide 26 Anion Gap 7 BUN 13 Creatinine 0.66 Est GFR ( Amer) 114.7 Est GFR (Non-Af Amer) 94.8 BUN/Creatinine Ratio 19.7 Glucose 94 Calcium 9.4 Total Bilirubin 0.40 AST 24 ALT 17 Alkaline Phosphatase 85 Total Protein 7.3 Albumin 4.2 Globulin 3.1 Albumin/Globulin Ratio 1.4 TSH 2.32 Urine Color Urine Appearance Urine pH Ur Specific [place] Urine Protein Urine Ketones Urine Blood Urine Nitrate Urine Bilirubin Urine Urobilinogen Ur Leukocyte Esterase Urine WBC (Auto) Urine RBC (Auto) Ur Squamous Epith Cells Urine Bacteria Urine Glucose Salicylates < 2.50 Urine Opiates Screen None detected Acetaminophen < 15 Ur Barbiturates Screen None detected Ur Phencyclidine Scrn None detected Ur Amphetamines Screen None detected U Benzodiazepines Scrn None detected Urine Cocaine Screen None detected U Cannabinoids Screen None detected Serum Alcohol < 10 08/05/18 02:45 WBC RBC Hgb Hct MCV MCH MCHC RDW Plt Count MPV Neut % (Auto) Lymph % (Auto) [place] % (Auto) Eos % (Auto) Baso % (Auto) Absolute Neuts (auto) Absolute Lymphs (auto) Absolute Monos (auto) Absolute Eos (auto) Absolute Basos (auto) Absolute Nucleated RBC Nucleated RBC % Sodium Potassium Chloride Carbon Dioxide Anion Gap BUN Creatinine Est GFR ( Amer) Est GFR (Non-Af Amer) BUN/Creatinine Ratio Glucose Calcium Total Bilirubin AST ALT Alkaline Phosphatase Total Protein Albumin Globulin Albumin/Globulin Ratio TSH Urine Color Straw Urine Appearance Cloudy Urine pH 7.0 Ur Specific [place] 1.006 L Urine Protein Negative Urine Ketones Negative Urine Blood 3+ A Urine Nitrate Negative Urine Bilirubin Negative Urine Urobilinogen Negative Ur Leukocyte Esterase Negative Urine WBC (Auto) Absent Urine RBC (Auto) 3+(>10/hpf) A Ur Squamous Epith Cells Present A Urine Bacteria Absent Urine Glucose Negative Salicylates Urine Opiates Screen Acetaminophen Ur Barbiturates Screen Ur Phencyclidine Scrn Ur Amphetamines Screen U Benzodiazepines Scrn Urine Cocaine Screen U Cannabinoids Screen Serum Alcohol
[2018-08-05] MEDS: Acetaminophen TAB* 325 MG PO PRN (14:35)
--- NOTE | 2018-08-05 14:38 | ED ---
Progress - Progress Note Progress Note: This pt was already admitted on an involuntary status to [facility] on the previous shift. Pt's case was reviewed by Dr. George, psychiatrist and pt will be admitted on a voluntary status with dx unspecified depressive disorder. Course/Dx - Diagnoses Provider Diagnoses: Depressive disorder Discharge - Sign-Out/Discharge Documenting (check all that apply): Patient Departure - Admit to [facility] All imaging exams completed and their final reports reviewed: No Studies - Discharge Plan Condition: Fair Disposition: [facility]IATRIC FACILITY[facility] [place] - Attestation Statements Document Initiated by Scribe: Yes Documenting Scribe: Audrey Sosa Provider For Whom Scribe is Documenting (Include Credential): Hernan Ramon MD Scribe Attestation: Audrey Park, scribed for Hernan Ramon MD on 08/05/18 at 1435. Status of Scribe Document: Ready
[2018-08-06] MEDS ORDERED: Ibuprofen TAB* 800 MG PO PRN (10:03)
[2018-08-06] MEDS: Acetaminophen TAB* 325 MG PO PRN (10:22)
[2018-08-06] MEDS ORDERED: SUMAtriptan TAB* 50 MG PO ONE (13:53)
[2018-08-06] MEDS: ARIPiprazole TAB* 5 MG PO SCH (21:56)
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
[2018-08-07] MEDS: Ferrous Gluconate TAB* 324 MG TAB PO SCH (08:36)
[2018-08-07] MEDS: LORazepam TAB(*) 1 MG PO PRN (13:56)
--- NOTE | 2018-08-07 14:57 | PN ---
Subjective - Subjective Date of Service: 08/07/18 Service Type: [id number] [facility] care 35 min high complexity Subjective: Michela's sister Fabrice visited her at lunch. Michela is quite appreciative of this , but is also saddened that she can't share everything she's feeling with her. Michela says she's trying not to fall apart, as she feels like she's been crying for too long and much too often. She's feeling sad and overwhelmed as if things will never improve. The stresses for Briana are extremely trying for her. She, according to both Michela and Fabrice, has been targeted by cliques at work. Michela has tried to keep her head down and just work, but it has been harder and harder for her to do this. Both Michela and Fabrice recognize the cyclic pattern of Michela's symptoms. They did not endorse seeing manic symptoms, but she says she has felt well and happy in the past. Michela has many strengths including loving her children (although she misses them and wishes they would call), being able to tolerate stress for long periods of time (although she does eventually break down), finding calming places by going on walks, and having a pastime she's passionate about: photography. Objective - Appearance Appearance: Well Developed/Nourished, Obese Dysmorphic Features: No Hygiene: Normal Grooming: Well Kept - Behavior Psychomotor Activities: Normal Exhibits Abnormal Movement: No - Attitude and Relatedness Attitude and Relatedness: Cooperative Eye Contact: Good - Speech Quality: Unpressured Latencies: Normal Quantity: Appropriate - Mood Patient's Decription of Mood: "Anxious" - Affect Observed Affect: Tearful Affect Consistent with: Dysphoria - Thought Process Patient's Thought Process: Coherent, Goal Directed Thought Content: Yes Passive Wish, Yes Suicidal Planning, No Homicidal Ideation, No Paranoid Ideation - Sensorium Experiencing Hallucinations: No, Sensorium is Clear Type of Hallucinations: Visual: No, Auditory: No, Command: No - Level of Consciousness Level of Consciousness: Alert Orientation: Yes Intact, Yes Orientated to Time, Yes Orientated to Place, Yes Orientated to Person - Impulse Control Impulse Control: Tenuous - Insight and Judgement Insight and Judgement: Fair - Group Participation Particating in Group Activities: Yes - Medication Management Medication Management Adherence: Yes Assessment - Assessment Merits Inpatient Hospitalization: For Immediate Safety Inpatient DSM-V Dx: F31.9 Clinical Impression: Michela is a 52-year-old woman with a long history of psychiatric hospitalizations (beginning at age 16) who has avoided hospitalization for 10 years and is now in a situation where her workplace ([email or web address]) is too stressful for her to manage as she is emotionally fragile and not able to access coping strategies. She had a suicide attempt and was brought to the hospital from work where she had written a suicide letter to her boss. Plan - Plan Treatment Plan: Name: MICHELA ORTIZ Birthdate: 1965 [id number] Continued Medication Management: Start Medication Medications: Current Medications Acetaminophen (Tylenol Tab*) 650 mg PO Q4H PRN PRN Reason: for pain; or Temp >101 F Last Admin: 08/06/18 10:22 Dose: 650 mg Al Hydrox/Mg Hydrox/Simethicone (Maalox Plus*) 30 ml PO Q4H PRN PRN Reason: INDIGESTION Aripiprazole (Abilify Tab*) 5 mg PO BEDTIME [facility] Last Admin: 08/06/18 21:56 Dose: 5 mg Ferrous Gluconate (Fergon Tab*) 324 mg PO DAILY [facility] Last Admin: 08/07/18 08:36 Dose: 324 mg Hydroxyzine HCl (Atarax Tab*) 50 mg PO Q6H PRN PRN Reason: ANXIETY Last Admin: 08/06/18 03:15 Dose: 50 mg Ibuprofen (Motrin Tab*) 800 mg PO Q8H PRN PRN Reason: PAIN Last Admin: 08/06/18 10:19 Dose: 800 mg Lorazepam (Ativan Tab(*)) 1 mg PO Q6H PRN PRN Reason: ANXIETY Last Admin: 08/07/18 13:56 Dose: 1 mg - Discharge Plan Discharge Plan: Outpatient Follow Up Outpatient Program: [facility] Additional Comments: Michela has been started on Abilify 5 mg with an eye toward using an injectable form of aripiprazole in the future. We have also begun Ativan and hydroxyzine PRNs for Michela to use when she is feeling exceedingly anxious. We plan to send her to [facility] upon discharge for therapy and medication management.
[2018-08-07] MEDS: ARIPiprazole TAB* 5 MG PO SCH (20:07)
[2018-08-08] MEDS: LORazepam TAB(*) 1 MG PO PRN (08:56)
[2018-08-08] MEDS: Ferrous Gluconate TAB* 324 MG TAB PO SCH (08:57)
--- NOTE | 2018-08-08 12:28 | PN ---
Subjective - Subjective Date of Service: 08/08/18 Service Type: [id number] [facility]osp care 25 min moderate complexity Subjective: Sayra says she wants to go home. She has been irritated and triggered by some "drama" on the unit started by one of her peers. Sayra is, however, highly symptomatic. She remains depressed: not eating or drinking, having trouble sleeping without medication, feeling low energy, having somatic symptoms of depression. She is also highly anxious and does not know how to manage it. She is utilizing Ativan at this time to help manage symptoms. Objective - Appearance Appearance: Well Developed/Nourished Dysmorphic Features: No Hygiene: Normal Grooming: Fairly Well Kept - Behavior Psychomotor Activities: Normal Exhibits Abnormal Movement: No - Attitude and Relatedness Attitude and Relatedness: Guarded Eye Contact: Fair - Speech Quality: Unpressured Latencies: Normal Quantity: Appropriate - Mood Patient's Decription of Mood: "Terrible" - Affect Observed Affect: Tearful Affect Consistent with: Dysphoria - Thought Process Patient's Thought Process: Coherent, Circumstantial Thought Content: Yes Passive Wish, No Suicidal Planning, No Homicidal Ideation, No Paranoid Ideation - Sensorium Experiencing Hallucinations: No, Sensorium is Clear Type of Hallucinations: Visual: No, Auditory: No, Command: No - Level of Consciousness Level of Consciousness: Agitated Orientation: Yes Intact, Yes Orientated to Time, Yes Orientated to Place, Yes Orientated to Person - Impulse Control Impulse Control: Impaired - Insight and Judgement Insight and Judgement: Poor - Group Participation Particating in Group Activities: Yes - Medication Management Medication Management Adherence: Yes Assessment - Assessment Inpatient DSM-V Dx: F31.9 Clinical Impression: Sayra is a 52-year-old woman with a long history of psychiatric hospitalizations (beginning at age 16) who has avoided hospitalization for 10 years and is now in a situation where her workplace ([email or web address]) is too stressful for her to manage as she is emotionally fragile and not able to access coping strategies. She had a suicide attempt and was brought to the hospital from work where she had written a suicide letter to her boss. Plan - Plan Treatment Plan: Name: SAYRA ORTIZ Birthdate: 1965 [id number] Medications: Current Medications Acetaminophen (Tylenol Tab*) 650 mg PO Q4H PRN PRN Reason: for pain; or Temp >101 F Last Admin: 08/06/18 10:22 Dose: 650 mg Al Hydrox/Mg Hydrox/Simethicone (Maalox Plus*) 30 ml PO Q4H PRN PRN Reason: INDIGESTION Aripiprazole (Abilify Tab*) 5 mg PO BEDTIME [facility] Last Admin: 08/07/18 20:07 Dose: 5 mg Ferrous Gluconate (Fergon Tab*) 324 mg PO DAILY [facility] Last Admin: 08/08/18 08:57 Dose: 324 mg Hydroxyzine HCl (Atarax Tab*) 50 mg PO Q6H PRN PRN Reason: Anxiety/insomnia Ibuprofen (Motrin Tab*) 800 mg PO Q8H PRN PRN Reason: PAIN Last Admin: 08/06/18 10:19 Dose: 800 mg Lorazepam (Ativan Tab(*)) 1 mg PO Q6H PRN PRN Reason: ANXIETY Last Admin: 08/08/18 08:56 Dose: 1 mg - Discharge Plan Discharge Plan: Outpatient Follow Up Outpatient Program: [facility] Additional Comments: Sayra has been started on Abilify 5 mg with an eye toward using an injectable form of aripiprazole in the future. We have also begun Ativan and hydroxyzine PRNs for Sayra to use when she is feeling exceedingly anxious. We plan to send her to [facility] upon discharge for therapy and medication management. 08/08/18 Although she wants to go home, she will benefit from more exposure to a positive social environment and may learn to find that here. She will also be given work to do about DBT as she likes working on paperwork alone.
[2018-08-08] MEDS: metFORMIN* 500 MG TAB PO SCH (18:30)
[2018-08-08] MEDS: ARIPiprazole TAB* 5 MG PO SCH (20:26)
[2018-08-08] MEDS: Gabapentin CAP(*) 300 MG PO SCH (20:26)
[2018-08-09] MEDS: Ferrous Gluconate TAB* 324 MG TAB PO SCH (07:42)
[2018-08-09] MEDS: metFORMIN* 500 MG TAB PO SCH ×2 (07:42→16:34)
[2018-08-09] MEDS: LORazepam TAB(*) 1 MG PO PRN (07:43)
[2018-08-09] MEDS: ARIPiprazole TAB* 5 MG PO SCH (19:49)
[2018-08-09] MEDS: Gabapentin CAP(*) 300 MG PO SCH (19:49)
[2018-08-10] MEDS: metFORMIN* 500 MG TAB PO SCH ×2 (08:00→16:27)
[2018-08-10] MEDS: LORazepam TAB(*) 1 MG PO PRN (08:01)
[2018-08-10] MEDS: Ferrous Gluconate TAB* 324 MG TAB PO SCH (13:05)
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
[2018-08-10] MEDS: hydrOXYzine HCL TAB* 50 MG PO PRN (16:27)
[2018-08-10] MEDS: Gabapentin CAP(*) 300 MG PO SCH (19:06)
[2018-08-10] MEDS: ARIPiprazole TAB* 5 MG PO SCH (19:07)
[2018-08-11] MEDS: metFORMIN* 500 MG TAB PO SCH (07:30)
[2018-08-11] MEDS: Ferrous Gluconate TAB* 324 MG TAB PO SCH (07:30)
[2018-08-11] MEDS: hydrOXYzine HCL TAB* 50 MG PO PRN (07:32)
[2018-08-11 08:50] VITALS: BP 125/49
--- NOTE | 2018-08-11 11:46 | PN ---
MHU: Group Therapy Note - Service Type Service Type: [id number] Group Psychotherapy - Cognitive Behavioral Group Therapy ( CBT):Patient was attentive and participatory in CBT programming this morning, and remained in good behavioral control. Patient expressed positive insights regarding relevant treatment interventions and goals.
--- NOTE | 2018-08-12 13:37 | DS ---
CC: [facility]; Dr. Chappell * DISCHARGE SUMMARY: DATE OF ADMISSION: 08/05/18 DATE OF DISCHARGE: 08/11/18 PROVIDER: Sarah Villalobos NP, in Psychiatry. SUPERVISING PHYSICIAN: Dr. Louie George.* (DICTATED BY SARAH VILLALOBOS NP ) DIAGNOSIS: [place] I: Bipolar disorder, generalized anxiety disorder. [place] II: Deferred. CONDITION AT THE TIME OF DISCHARGE: Improved. Psychiatrically cleared and stable. Michela participated well in groups and was social with peers. Her sister is agreeable to her discharge and is picking her up. She has done well here psychiatrically. She tolerated Abilify, which is a new med, well. She also tolerated Ativan well. She is going to attend [facility]. MENTAL STATUS EXAMINATION: At the time of discharge, Michela is calm, cooperative and makes good eye contact. She is alert and oriented x3. Her grooming is good. Her speech pace is normal. Her thought processes are logical. She is not psychotic or delusional. She denies AH, VH, SI, and HI. Insight and judgment are good. She is willing to follow up and she is urged to see a therapist, which she is agreeable to do. DISCHARGE INSTRUCTIONS TO THE PATIENT: A. Medications: 1. Aripiprazole 5 mg at bedtime, dispensed 30. 2. Ferrous gluconate 324 mg, take daily, dispensed 30. 3. Gabapentin 300 mg at bedtime, dispensed 30. 4. Lorazepam 1 mg 1 tablet every 12 hours as needed for anxiety, dispensed 40. 5. Metformin 500 mg take 1 at 0800 in the morning and 1 at 1700, dispensed 60. Her pharmacy is [facility] in [place]. B. Diet is regular or diabetic as she chooses. C. Activities: As tolerated. Michela is a smoker, but declined both medication and counselling for quitting smoking. There are no studies pending at the time of discharge. D. Followup care: She is going to see [facility]. She has an intake on 08/12/18 at 9:45. She is also encouraged to follow up with Genaro Chappell, who is her primary care provider as needed. E. Substance abuse followup is not indicated. HOSPITAL COURSE: A. Chief Complaint: This is the content of the suicide note she wrote "to all my family at [facility], each and every one of you have been great to me and that means a lot to me, but as of now I cannot deal with these things in my life, I cannot find a way out of this mess and one last person to worry about. I will love you all who have been there for me and thank you all for trying to help, love you all, Michela." The patient is a 52-year-old single white female with a history of having been in hospitals multiple times in her life with diagnoses ranging from anxiety disorder to bipolar disorder to schizophrenia. She comes in, brought by police. She is here on a 939 status following writing a note to her boss at [facility]. Michela states she is suffering from many problems including insomnia and anxiety that ranges to paranoia and her insomnia is caused by racing thoughts. For this suicide episode, she bought sleeping pills specifically Unisom and took 2 or 3 in hopes she would not wake up in the morning. Some precipitating factors are that, she was in a romantic relationship for 7 months and then 1 month ago, he began to reveal that he had another lover and he had children with her and he did not tell Michela any of this. He told her coworkers who told her. Michela lives with 2 sisters. One sister she rents a room from and another sister also I believe also rents a room, but is a serious alcoholic who is difficult to live near. In this context, Michela has found that there is no reason for her to live. She is unhappy, she is frightened, she is anxious. She feels like life will never improve. Her sleep is poor. She has no interest in things. She enjoys photography, but cannot get herself out to go and do that. She feels guilty about disappointing people. She has got little energy. She states her appetite is poor and she is having suicidal ideation. B. Psychiatric treatment was rendered: The patient was admitted to the adult behavioral unit and placed on 15-minute checks for safety. Michela did well in the unit and went to group. She interacted with peers well. She learned a lot by going to groups and benefitted from the socialization. She tolerated med changes very well. She appreciated the Abilify and the Ativan stating that they made her life easier and that she is tolerating stress better. Abilify 5 was started, metformin was started as she has hemoglobin A1c that is too high and she has been diagnosed with diabetes in the past. Her hematocrit and hemoglobin were also low; thus, iron was started as well. Her hemoglobin A1c was 5.9, her triglycerides were 72, cholesterol was 166, LDL cholesterol 111, HDL cholesterol 41.0. Incidentally, her TSH is 2.32. I did meet with her sister , who was pleasant and supportive of Michela, although Michela feels as though she does not understand how difficult it is for Michela to be who she is. She is looking forward to taking advantage of therapy at [facility]. No consults were entered for her. She is much improved. Her sleep has improved. Her appetite improved, which was suffering, nothing looked appealing and nothing was appetizing. She is smiling more and she is relating better, calling people honey, which she was not doing before. In general, she has improved significantly and she is eager to go home. SARAH VILLALOBOS NP ADDENDUM: I neglected to ask that her discharge plan be carbon copied to [facility] and to Dr. Chappell. SARAH VILLALOBOS NP [id number]/CPS #: [id number]/CPS #: [id number] BAR
--- NOTE | 2018-08-12 14:53 | DS ---
DISCHARGE SUMMARY: ADDENDUM: "I neglected to ask that her discharge plan be carbon copied to [facility] and to Dr. Chappell." ELIANA VILLALOBOS, SKI LIFT OPERATOR [id number]/CPS #: [id number] [facility] CENTERAdelaide
== END 2018-08-11 12:20 | disposition home or self-care (01) | DRG 753 ==
LOC: ED 01:31 → BSU 13:42
PROVIDERS: ADMIT Psychiatry & Neurology Psychiatry; ATTEND Psychiatry & Neurology Psychiatry
PROC: GZHZZZZ Group Psychotherapy (ICD-10-PCS; principal; 2018-08-11)
DX: F31.9 Bipolar disorder, unspecified (principal); E78.00 Pure hypercholesterolemia, unspecified; F41.1 Generalized anxiety disorder; D64.9 Anemia, unspecified; G43.909 Migraine, unspecified, not intractable, without status migrainosus; H52.10 Myopia, unspecified eye; T42.72XA Poisoning by unspecified antiepileptic and sedative-hypnotic drugs, intentional self-harm, initial encounter; Z79.84 Long term (current) use of oral hypoglycemic drugs; G47.00 Insomnia, unspecified; E66.9 Obesity, unspecified; Z83.3 Family history of diabetes mellitus; Z91.013 Allergy to seafood; Z87.01 Personal history of pneumonia (recurrent); Z82.49 Family history of ischemic heart disease and other diseases of the circulatory system; Z72.89 Other problems related to lifestyle; Z91.5 Personal history of self-harm; Z81.8 Family history of other mental and behavioral disorders; Z81.1 Family history of alcohol abuse and dependence; Y92.89 Other specified places as the place of occurrence of the external cause; Z68.38 Body mass index [BMI] 38.0-38.9, adult
CPT/HCPCS: 36415; 80053; 80061; 80307; 80320; 80329; 81003; 81015; 83036; 84443; 85025; 90686; 90853; 99222; 99231; 99232; 99233; 99238; 99284; A9270-GY; G0480

== ENCOUNTER 2018-10-11 03:44 | Observation (INO) | payer BC ==
[2018-10-11] MEDS ORDERED: Morphine VIAL* 10 MG/ML 1 ML VIAL IV ONE (04:05)
[2018-10-11] MEDS ORDERED: Metoclopramide IV* 5 MG/ML 2 ML VIAL IV SLOW PU ONE (04:05)
[2018-10-11] MEDS ORDERED: diPHENhydraMINE PO* 50 MG PO ONE (04:06)
--- NOTE | 2018-10-11 04:08 | ED ---
Headache - HPI Summary HPI Summary: This patient is a 52 year old female brought in by ambulance to [facility] with a chief complaint of headache since yesterday morning. Yesterday morning, patient had an episode of slurred speech which lasted around 30 minutes, before resolving. The migraine remains constant. 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 Patients sister noted that she had one sided facial droop so patient presents to the ED. The pain is rated 10/10 in severity. Symptoms aggravated by nothing. Symptoms alleviated by nothing. - History Of Current Complaint Chief Complaint: EDGeneral Stated Complaint: GENERAL ILLNESS Time Seen by Provider: 10/11/18 03:52 Hx Obtained From: Patient Onset/Duration: Started days ago, Still Present Currently Pain Is: Current Pain Scale(0-10)= - 10 Timing: Constant Character: Migraine Location of Headache: Temporal - left Aggravating Factor: Nothing Allevating Factors: Nothing Associated Signs And Symptoms: Dizziness - Allergies/Home Medications Allergies/Adverse Reactions: Allergies Allergy/AdvReac Type Severity Reaction Status Date / Time Fish Containing Products Allergy Hives/Diff. Verified 08/05/18 01:38 Breathing/I tching PMH/Surg Hx/FS Hx/Imm Hx Previously Healthy: No Endocrine/Hematology History: Reports: Hx Anemia - no tx Denies: Hx Anticoagulant Therapy, Hx Blood Disorders, Hx Thyroid Disease Cardiovascular History: Reports: Hx Hypercholesterolemia - may have had this in the past - no meds Denies: Hx Aneurysm, Hx Atrial Fibrillation, Hx Congenital Heart Disease, Hx Congestive Heart Failure, Hx Coronary Artery Disease, Hx Deep Vein Thrombosis, Hx Hypertension, Hx Myocardial Infarction, Hx Valvular Heart Disease Respiratory History: Reports: Hx Pneumonia - "B/L PNA 2 months ago" Denies: Hx Asthma, Hx Chronic Obstructive Pulmonary Disease (COPD) GI History: Denies: Hx Cirrhosis, Hx Crohn's Disease, Hx Diverticulosis, Hx Gastroesophageal Reflux Disease, Hx Gastrointestinal Bleed, Hx Irritable Bowel, Hx Ulcer Musculoskeletal History: Denies: Hx Arthritis Sensory History: Reports: Hx Contacts or Glasses, Other Sensory Impairments - h/ o vessels tear -scarred and healing Denies: Hx Macular Degeneration, Hx Hearing Aid Opthamlomology History: Reports: Hx Contacts or Glasses, Other Sensory Impairments - h/o vessels tear -scarred and healing Denies: Hx Macular Degeneration Neurological History: Reports: Hx Headaches - daily Denies: Hx CVA Psychiatric History: Reports: Hx Depression, Hx Inpatient Treatment - [place], [place] and [place], [place], Hx Bipolar Disorder, Hx Suicide Attempt Denies: Hx Anxiety, Hx Community Mental Health Tx, Hx of Violent Episodes Against Others, Hx Substance Abuse - Immunization History Date of Tetanus Vaccine: unk Date of Influenza Vaccine: none Infectious Disease History: No Infectious Disease History: Denies: Traveled Outside the [place] in Last 30 Days - Family History Known Family History: Positive: Hypertension - Social History Occupation: Employed Full-time Alcohol Use: Rare Hx Substance Use: No Substance Use Type: Reports: None Hx Tobacco Use: No Smoking Status (MU): Never Smoked Tobacco Review of Systems Negative: Fever Neurological: Other - dizziness Positive: Headache, Slurred Speech All Other Systems Reviewed And Are Negative: Yes Physical Exam - Summary Physical Exam Summary: VITAL SIGNS: Reviewed. GENERAL: Patient is a well-developed and nourished (MALE OR FEMALE) who is lying comfortable in the stretcher. Patient is not in any acute respiratory distress. HEAD AND FACE: No signs of trauma. No ecchymosis, hematomas or skull depressions. No sinus tenderness. EYES: PERRLA, EOMI x 2, No injected conjunctiva, no nystagmus. EARS: Hearing grossly intact. Ear canals and tympanic membranes are within normal limits. MOUTH: Oropharynx within normal limits. NECK: Supple, trachea is midline, no adenopathy, no JVD, no carotid bruit, no c- spine tenderness, neck with full ROM. CHEST: Symmetric, no tenderness at palpation LUNGS: Clear to auscultation bilaterally. No wheezing or crackles. CVS: Regular rate and rhythm, S1 and S2 present, no murmurs or gallops appreciated. ABDOMEN: Soft, non-tender. No signs of distention. No rebound no guarding, and no masses palpated. Bowel sounds are normal. EXTREMITIES: FROM in all major joints, no edema, no cyanosis or clubbing. NEURO: Alert and oriented x 3. Speech is normal and follows commands. Positive for mild left central facial droop. No dysmetria. SKIN: Dry and warm Triage Information Reviewed: Yes Vital Signs On Initial Exam: Initial Vitals Temp Pulse Resp BP Pulse Ox 98.1 F 73 18 143/67 98 10/11/18 03:48 10/11/18 03:48 10/11/18 03:48 10/11/18 03:48 10/11/18 03:48 Vital Signs Reviewed: Yes Diagnostics - Vital Signs Vital Signs Temp Pulse Resp BP Pulse Ox 10/11/18 03:48 98.1 F 73 18 143/67 98 - Laboratory Result Diagrams: 10/11/18 04:12 10/11/18 04:12 Lab Statement: Any lab studies that have been ordered have been reviewed, and results considered in the medical decision making process. - Radiology CXR Radiology Interpretation Completed By: ED Physician Summary of Radiographic Findings: CXR reveals, per ED physician, no acute process. Pending official report. - CT CT Head CT Interpretation Completed By: Radiologist Summary of CT Findings: CT Head reveals, per radiologist, IMPRESSION: No hemodynamically significant stenosis. ED physician has reviewed this radiology report CT Brain CT Interpretation Completed By: Radiologist Summary of CT Findings: CT Brain reveals, per radiologist, IMPRESSION: No acute intracranial process is visualized. ED physician has reviewed this radiology report. - EKG 0430 Cardiac Rate: NL EKG Rhythm: Sinus Rhythm - 66 BPM Summary of EKG Findings: An EKG, taken 0430, reveals NSR (66 BPM), Normal axis. Normal interval. No ischemic changes. National Institutes Of Health - NIH Scale Level of Consciousness: Alert/Keenly Responsive Ask Patient the Month and His/Her Age: Both Correct Ask Pt to Open/Close Eyes and Acquisition Marketing Manager/Release Non-Paretic Hand: Both Correctly Best Gaze (Only Horizontal Eye Movement): Normal Visual Field Testing: No Visual Loss Facial Paresis-Pt to Smile & Close Eyes or Grimace Symmetry: Minor Paralysis Motor Function - Right Arm: No Drift-Holds 10 Seconds Motor Function - Left Arm: No Drift-Holds 10 Seconds Motor Function - Right Leg: No Drift-Holds 10 Seconds Motor Function - Left Leg: No Drift-Holds 10 Seconds Limb Ataxia-Must be out of Proportion to Weakness Present: Absent Sensory (Use Pinprick to Test Arms/Legs/Trunk/Face): Normal Best Language (Describe Picture, Name Items): No Aphasia Dysarthria (Read Several Words): Normal Extinction and Inattention: No Abnormality - patient's symptoms started at 11 AM yesterday. Also patient complains of headache since yesterday. Patient stated that her headache is similar to the migraine headache that she used to get. Total Score: 1 Headache Course/Dx - Course Course Of Treatment: This patient is a 52 year old female brought in by ambulance to [facility] with a chief complaint of headache since yesterday morning. Yesterday morning, patient had an episode of slurred speech which lasted around 30 minutes, before resolving. An EKG, taken 0430, reveals NSR (66 BPM), Normal axis. Normal interval. No ischemic changes. CXR reveals, per ED physician, no acute process. Pending official report. CT Head reveals, per radiologist, IMPRESSION: No hemodynamically significant stenosis. ED physician has reviewed this radiology report. CT Brain reveals, per radiologist, IMPRESSION: No acute intracranial process is visualized. ED physician has reviewed this radiology report. Bloodwork Obtained. Urinalysis Obtained. The pt is hemodynamically stable, alert and oriented x3. Code Lynch called at [phone]. We discussed patient care with Dr. Cavazos (Hospitalist) at 520 and they agreed to accept the patient. Patient will be discharged with a dx of headache, TIA, CVA. Patient is advised to follow up with PCP in 3 days. The patient is agreeable with this plan. - Diagnoses Provider Diagnoses: Headache, TIA (transient ischemic attack), CVA (cerebral vascular accident) - Physician Notifications Discussed Care Of Patient With: Cynthia Cavazos - Hospitalist Time Discussed With Above Provider: 05:20 - . We discussed patient care with Dr. Cavazos (Hospitalist) at 520 and they agreed to accept the patient. Instructed by Provider To: Admit As Inpatient - Critical Care Time Critical Care Time: 30-74 min - 40 Discharge - Sign-Out/Discharge Documenting (check all that apply): Patient Departure - Discharge Plan Condition: Stable Disposition: ADMITTED TO [facility] Referrals: Genaro Chappell MD [Primary Care Provider] - - Attestation Statements Document Initiated by Scribe: Yes Documenting Scribe: Nichol Farmer Provider For Whom Scribe is Documenting (Include Credential): Francisca Canada MD Scribe Attestation: Nichol Park, scribed for Francisca Canada MD on 10/11/18 at 0642. Status of Scribe Document: Ready
[2018-10-11 04:23] LABS: ABS Basophils 0.1 10^3/ul (0-0.2); ABS Eosinophils 0.1 10^3/ul (0-0.6); ABS Lymphocytes 1.7 10^3/ul (1.0-4.8); ABS Monocytes 0.4 10^3/ul (0-0.8); ABS Neutrophils 3.9 10^3/ul (1.5-7.7); ABS Nucleated RBC 0 10^3/ul; Eosinophil % 1.6 %; Hematocrit 27 % (35-47); Hemoglobin 8.3 g/dl (12.0-16.0); Lymphocyte % 27.4 %; Mean Corpuscular HGB Conc 31 g/dl (31-36); Mean Corpuscular Hemoglobin 18 pg (27-31); Mean Corpuscular Volume 57 fL (80-97); Mean Platelet Volume 8.1 fL (7.4-10.4); Nucleated Red Blood Cells % 0; Platelet Count 401 10^3/ul (150-450); Red Blood Count 4.73 10^6/ul (4.00-5.40); Red Cell Distribution Width 22 % (10.5-15); White Blood Count 6.1 10^3/ul (3.5-10.8)
[2018-10-11 04:30] LABS: Activated Partial Thrombo Time 31.3 seconds (26.0-36.3); INR 0.91 (0.77-1.02)
[2018-10-11] MEDS ORDERED: Iodixanol 320 (CONTRAST) 100 ML SDV IV ONE (04:32)
[2018-10-11 04:39] LABS: Albumin/Globulin Ratio 1.4 (1-3); BUN/Creatinine Ratio 14.9 (8-20); Calcium 9.2 mg/dL (8.6-10.3); EGFR African American 83.4 (>60); EGFR Non-African American 68.9 (>60); Globulin 2.8 g/dL (2-4); Potassium 3.8 mmol/L (3.5-5.0); Total Bilirubin 0.4 mg/dL (0.2-1.0); Total Protein 6.8 g/dL (6.4-8.9)
[2018-10-11] MEDS ORDERED: Aspirin TAB* 325 MG PO ONE (05:04)
[2018-10-11] MEDS ORDERED: Ondansetron INJ* 2 MG/ML VIAL IV PRN (05:26)
[2018-10-11 06:23] LABS: HDL Cholesterol 42.2 mg/dL
[2018-10-11] MEDS: Clopidogrel TAB* 75 MG PO SCH (10:11)
[2018-10-11] MEDS: Ferrous Gluconate TAB* 324 MG TAB PO SCH (10:11)
[2018-10-11] MEDS: metFORMIN* 500 MG TAB PO SCH ×2 (10:12→16:31)
--- NOTE | 2018-10-11 11:06 | HP ---
CC: Dr. Genaro Chappell HISTORY AND PHYSICAL: DATE OF ADMISSION: 10/11/17 PRIMARY CARE PROVIDER: Dr. Genaro Chappell. CHIEF COMPLAINT: Slurred speech, headache. HISTORY OF PRESENT ILLNESS: This is a 52-year-old female with past medical history of depression, anxiety, migraines who now presents to the emergency room because of intermittent slurred speech, headache, and left facial droop. Patient reports that yesterday at 11 o'clock in the morning when she woke up, she noted that she was having slurred speech. This lasted about 30 minutes and then resolved on its own and then she had quite a few episodes throughout the day, and her sister also noted that the patient had a slight facial droop on the left side when the patient woke up. Patient did not think much of these symptoms and decided to go to work this evening and went to work. She works at [employer]; however, she developed a debilitating headache, which she describes as a migraine headache, frontal headache, 10/10, associated with light sensitivity , this prompted her to come to the emergency room. In the emergency room, inderjit gutierrez was called. Upon evaluation by the emergency room physician, she was noted to have slight left facial droop; however, otherwise, the NIH score was negative with no other symptoms, except for the left facial droop. Patient underwent a CT of the head as well as CTA and subsequently was ordered for aspirin and hospital service was contacted. PAST MEDICAL HISTORY: 1. Depression. 2. Anxiety. 3. Migraine. 4. Iron deficiency anemia. PAST SURGICAL HISTORY: Ganglion cyst. MEDICATIONS: Include: 1. Metformin 500 mg b.i.d. 2. Gabapentin 200 mg at bedtime. 3. Ferrous sulfate 324 mg daily. 4. Abilify 5 mg at bedtime. 5. Ativan 1 mg every 12 hours as needed. ALLERGIES: Include fish containing products. FAMILY HISTORY: Mother: Stroke. Father: Cancer. SOCIAL HISTORY: Patient lives at home, works at [employer], reports no use of alcohol, and reports that she is a nonsmoker. REVIEW OF SYSTEMS: Patient does not have any fever, no chills, no sore throat, no changes in her hearing or vision, does not have any chest pain, no shortness of breath, no palpitations, no cough, no sputum production, no hesitancy with urine, no urinary discomfort, no dysuria, no hematuria, no urinary or rectal incontinence, no abdominal pain, no nausea, no vomiting, no diarrhea. She is having headaches and neurological symptoms as described in HPI, no back pain, no joint pain. She does have depression and anxiety; however, reports that they are controlled with no thoughts of hurting herself or anyone else. PHYSICAL EXAMINATION GENERAL: A well-developed, well-nourished, obese female, lying on an ER stretcher, in no acute distress. VITAL SIGNS: Blood pressure of 142/74, heart rate of 66, respiratory rate of 16 , saturation of 100% on room air, temperature of 98.1 degrees Fahrenheit. BMI of 36.9. HEENT: Pupils are equal, round, and reactive to light. There is no nystagmus. There is no oropharyngeal erythema. Oral mucosa is moist. LUNGS: There is no tachypnea. No use of accessary muscles. Lungs are clear to auscultation bilaterally with no wheezing, rales, or rhonchi. HEART: Regular rate and rhythm. No chest wall tenderness. No murmurs, rubs, or gallops. ABDOMEN: Bowel sounds are normoactive in all 4 quadrants. Abdomen is soft, nontender, nondistended. EXTREMITIES: There is no lower extremity edema. No calf tenderness. Radial pulse and dorsalis pedis are 2+ bilaterally. NEUROLOGIC: Patient is alert, oriented x3. Her tongue is midline. Slight facial asymmetry on the left side. Her level of consciousness, she is alert and oriented x3. She is able to answer the month as well as her age. She follows both commands. She does not have any gaze paralysis. There is no gaze deviation. There is no visual loss. She does have minor face paresis on the left side, described as left facial droop partially. Her motor, arm, there is no pronator drift. There is no leg drift. There is no ataxia. Sensation is intact. There is no dysarthria, no aphasia. Deep tendon reflexes are 2+ bilaterally. PSYCH: Her mood is appropriate. DIAGNOSTIC STUDIES/LAB DATA: Hemoglobin of 8.3, hematocrit of 27, RDW of 22, MCV of 57, INR of 0.91, APTT of 31.3. Glucose of 127, BUN of 13, creatinine of 0.87. She had a CT scan of her brain, which showed no acute intracranial process visualized. Lathrop score is 10. She also had a head CTA, which showed no hemodynamically significant stenosis or large-vessel occlusion. She also had a CTA of the neck, which did not show any significant occlusion. EKG shows normal sinus rhythm. Chest x-ray was done. Official report is pending; however, as reviewed by me, does not show any acute pathology. IMPRESSION AND PLAN: 1. Transient ischemic attack versus complex migraine: At this point, her CT head is negative as well as CTA does not show any occlusion. Unfortunately, she is out of the TPA window and currently, she only has minor left-sided facial droop. Also, she does not meet criteria for the thrombectomy as the CTA was negative. Patient was given aspirin in the emergency room. I will continue patient on daily aspirin 81 mg as well as start the patient on statin. Check hemoglobin A1c as well as lipid profile, we will check an echocardiogram. At this point, carotid ultrasound will not be ordered as patient already had CTA of the neck, which was normal. I have also ordered an MRI of the brain for completeness. 2. Depression and anxiety: Continue Abilify. At this point, due to neurological symptoms, I will hold patient's lorazepam, which she takes for anxiety. 3. Diabetes: Continue metformin; once she passes her swallowing evaluation, I will start the patient on a diuretic diet, we will check an A1c as well. 4. Chronic iron deficiency anemia: If the patient's MCV and RDW are still suggestive of iron deficiency anemia, patient is supposed to be taking iron supplements on a regular basis; however, chooses not to. I discussed with the patient that she really needs to take her iron on a regular basis as well as eat iron enriched foods. 5. Obesity: Weight loss recommended. 6. DVT prophylaxis: Ambulation. Currently, patient will be made observation status, awaiting further studies. [id number]/[facility] #: [id number] [facility]ENTERAdelaide
--- NOTE | 2018-10-11 11:46 | CONS ---
CONSULTATION NOTE: DATE OF CONSULT: 10/11/18 LOCATION: She is currently in [facility], bed 1. REASON FOR CONSULTATION: Slurred speech and left-sided facial droop. HISTORY OF PRESENT ILLNESS: Ms. Loaiza is a very nice 52-year-old right- handed female who has a history of diabetes, on metformin. She also has a history of psychiatric illness including bipolar, currently on Abilify. She also takes gabapentin. She was in her usual state of health. She works third shift. Last night around 2 a.m., she developed an episode of slurred speech that she states lasted about 15 minutes and resolved. Her sister noted that she had a droop on the left side of her face that has improved. She works at [employer] and notes that since being on the Abilify she has had several episodes where her left face would droop for a few minutes and then resolve. This has happened 3 times over the last week or so. She also noted a migraine headache at that time. She gets occasional migraines, generally about once a week with typical migrainous features - nausea, light and sound sensitivity, global in nature, severe in nature. She does not think that the symptoms were associated with her migraine headache, though. When she presented to the ER, she did note a headache rated 10/10. She noted that it was in the left temporal region at the time. There were no aggravating or alleviating factors and she also had some dizziness associated with that. She denied any other focal numbness, tingling, or weakness. She was unaware of the facial droop prior to her sister telling about it. She has some chronic blurry vision, but no vision loss. She denied any facial pain. She denied any problem swallowing. Other than the slurred speech, she had no problems with word production. She denied any focal numbness, tingling, or weakness in her arms or legs. She did feel dizzy and somewhat unsteady on her feet yesterday. She denied any chest pain, shortness of breath, or dyspnea on exertion. She denied any recent illnesses, fevers, chills, vomiting, diarrhea, or constipation. She denies any tobacco use. She does report a history of pneumonia several months ago. She has no history of atrial fibrillation or heart problems that she is aware of. She has never had any previous strokes or heart attacks. A CT scan done in the ER showed no acute process. CT angiogram of the head and neck done yesterday in the ER shows mild calcification involving the right carotid without stenosis. Cerebral vessels are normal. Mild calcification involving the left carotid. She has a left A1 segment marked hypoplastic or absent. Basilar artery is small in caliber. There was no aneurysm or significant stenosis noted. She was admitted to the hospital overnight. Her tele showed some bradycardia in the 40s initially when she came to the floor; otherwise, no arrhythmias. Vital signs have been stable overnight. She feels somewhat better this morning and feels like she is "getting back to her usual self." She currently denies any major headache. She is hungry. She has not had anything to eat, although she did pass her bedside swallow exam. PAST MEDICAL HISTORY: As noted above. PAST SURGICAL HISTORY: Includes ganglion cyst removed in the wrist. MEDICATIONS: At home include: 1. Metformin 500 mg p.o. b.i.d. 2. Gabapentin 300 mg at bedtime. 3. Iron 324 mg daily. 4. Abilify 5 mg at bedtime. 5. Lorazepam 1 mg q.12 hours p.r.n. ALLERGIES: To fish containing products. FAMILY HISTORY: No reported strokes or heart attacks, noncontributory. SOCIAL HISTORY: She works at [employer] third shift. She denies any significant tobacco use. No alcohol use. No illicit substances. She is . She has 5 children. She lives at home. REVIEW OF SYSTEMS: A 14-organ systems as noted above in the HPI; otherwise, negative. PHYSICAL EXAM: Vital Signs: Her pulse is in the 60s to 70s, respiratory rate 19 to 21, blood pressures have been in the 120s-130/50s-60s. She has been afebrile since admission. In general, she is a well-nourished, well-developed, obese female, in no acute distress. She is lying in her hospital bed. She is pleasant, well dressed, well groomed. HEENT: She is normocephalic, atraumatic. Sclerae are anicteric. Mucous membranes are moist. She has no teeth, no dentures in place. Oropharynx appears clear. No lesions. Neck is supple. No thyromegaly. No carotid bruits. No meningismus. Chest is clear to auscultation bilaterally. Cardiovascular is regular rate and rhythm without murmurs. Abdomen: Nontender, obese. Extremities: There is no clubbing, cyanosis, or edema. Her skin is warm and dry without lesions. On neurologic examination, she is awake, alert. She is oriented x3. Her speech is fluent. There is some mild dysarthria, but I think it is related to her poor dentition. Her speech is fluent, otherwise. Repetition is intact. Recall of recent and remote events is intact. Vocabulary is intact. Her mood is dysthymic. Affect and mood congruent. Cranial Nerves: Pupils are equal, round, and reactive to light. Extraocular muscles are intact and no nystagmus appreciated. No ptosis appreciated. Visual razo are full to confrontation. Face, sensation is intact bilaterally to light touch. Her hearing is intact bilaterally. She has mild flattening of the right nasolabial fold this morning. No appreciated weakness on the left. No upper facial weakness. Her palate raises symmetrically. Tongue is midline. Sternocleidomastoid and trapezius are 5/5. Motor Exam: She is 5/5 throughout. She has some mild drift bilaterally in upper extremities after 5 or 6 seconds. She has mild drift bilaterally in the lower extremities and symmetric. Tone and bulk are both normal. DTRs are 1+ and symmetric at the biceps, brachioradialis, triceps, patella, and ankles. Equivocal Babinski's. Sensation is intact to light touch and pinprick throughout. Finger-to- nose, rapid alternating movements, [id number] are both intact without dysmetria. Gait: She was able to stand. She felt somewhat dizzy, slightly wide based, but stable. DIAGNOSTIC STUDIES/LAB DATA: Lab work includes CBC with diff, hemoglobin of 8.3 , hematocrit of 27, MCV is 57. INR 0.91. PTT of 31.3. Complete metabolic profile significant for glucose of 127; otherwise, normal. Triglyceride of 240 , cholesterol 165, LDL 75, HDL of 42.2. Imaging as noted above in the HPI. MRI and echocardiogram are pending. ASSESSMENT AND PLAN: Ms. Loaiza is a 52-year-old female with a history of bipolar disorder; on Abilify, history of diabetes; on metformin, reports no history of hypertension or known hypercholesterolemia, no prior history of heart attacks or strokes. She presented to the hospital with 3 episodes of what she described as slurred speech. Sister noted some left facial weakness last night. She came to the hospital and had largely resolved by the time she got here. She notes some residual dizziness, but feels that her symptoms are returning to baseline. On examination, she had some mild right facial weakness , no left facial weakness. She also has a history of migraine headaches, had one when she came to the hospital. These happen about once a week, not generally associated with any focal neurologic deficits. At this point, my suspicion for stroke is low given the fact that she had 3 separate episodes all the same in nature over the last several days; would be unlikely to occur in the same vascular territory each time. With that said, she does have some risk factors including diabetes and some mild hypercholesterolemia. She was admitted to the hospital. We will continue with her stroke workup. She needs an MRI and an echocardiogram. The differential would also include complicated migraine headaches, although she denies a history of this, possible focal seizure; Abilify can lower seizure threshold. She has no prior history of seizures. No risk factors for seizures. My suspicion is very low. It could be related to underlying hypoglycemia given her diabetes, although when she came into the hospital, her blood sugars were in the 150 range, unlikely. Plan is to monitor her closely in the hospital on telemetry. Review her MRI and echocardiogram. Should the MRI show evidence of vascular disease or strokes, I would recommend getting an outpatient 30-day event monitor as well to rule out any atrial fibrillation. For now, I would treat her with aspirin and Plavix for 30 days, at which point you can drop the Plavix and continue the aspirin 81 mg a day. Given her risk factors, I would also treat her cholesterol and lipids aggressively with statin, which she is now on. She is a nonsmoker. Continue to monitor her blood pressure closely and treat accordingly and monitor for any new symptoms. I can see her as an outpatient and will be glad to follow her and treat her migraines as well. I will continue to follow her closely and make further recommendations as necessary. Thank you for the opportunity to participate in the care of this very nice patient. [id number]/[facility] #: [id number] BAR
[2018-10-11] MEDS: Acetaminophen TAB* 325 MG PO PRN (15:21)
[2018-10-11 15:40] LABS: Urine Appearance Clear; Urine Bilirubin Negative (Negative); Urine Blood Negative (Negative); Urine Color Straw; Urine Glucose Negative (Negative); Urine Ketones Negative (Negative); Urine Nitrite Negative (Negative); Urine Protein Negative (Negative); Urine Specific Gravity 1.043 (1.010-1.030); Urine Urobilinogen Negative (Negative)
--- NOTE | 2018-10-11 15:42 | PN ---
Subjective Date of Service: 10/11/18 Interval History: Ms. Loaiza is feeling better today. Her symptoms from yesterday have essentially resolved. She does not feel as though her speech is still slurred, but her significant other feels as though her speech is not quite at baseline. Mild dizziness. She denies any other neuro deficits. Denies CP, SOB, palpitations, N/V. Understands that she will be here through the weekend d/t necessary testing. Family History: Unchanged from Admission Social History: Unchanged from Admission Past Medical History: Unchanged from Admission Objective Active Medications: Acetaminophen (Tylenol Tab*) 650 mg PO Q6H PRN HEADACHE Aripiprazole (Abilify Tab*) 5 mg PO BEDTIME MARSHALL Aspirin (Aspirin 81 Mg Chew Tab*) 81 mg PO DAILY MARSHALL Atorvastatin Calcium (Lipitor*) 40 mg PO 2100 MARSHALL Clopidogrel Bisulfate (Plavix Tab*) 75 mg PO DAILY MARSHALL Ferrous Gluconate (Fergon Tab*) 324 mg PO DAILY MARSHALL Gabapentin (Neurontin Cap(*)) 300 mg PO BEDTIME MARSHALL Metformin HCl (Glucophage*) 500 mg PO 0800,1700 MARSHALL Ondansetron HCl (Zofran Inj*) 4 mg IV Q6H PRN NAUSEA Vital Signs - 8 hr 10/11/18 10/11/18 08:00 11:29 Temperature 97.8 F Pulse Rate 63 Respiratory 16 16 Rate Blood Pressure 112/61 (mmHg) O2 Sat by Pulse 99 99 Oximetry Oxygen Devices in Use Now: None Appearance: Middle-aged female sitting in bed in NAD Eyes: No Scleral Icterus Ears/Nose/Mouth/Throat: Mucous Membranes Moist Neck: NL Appearance and Movements; NL JVP, Trachea Midline Respiratory: Symmetrical Chest Expansion and Respiratory Effort, Clear to Auscultation Cardiovascular: NL Sounds; No Murmurs; No JVD, RRR Abdominal: NL Sounds; No Tenderness; No Distention Extremities: No Edema Skin: No Rash or Ulcers Neurological: Alert and Oriented x 3, NL Sensation, NL Gait, NL Muscle Strength and Tone Lines/Tubes/Other Access: Clean, Dry and Intact Peripheral IV Nutrition: Taking PO's Result Diagrams: 10/11/18 04:12 10/11/18 04:12 Assess/Plan/Problems-Billing Assessment: Ms. Loaiza is a 52 yo F with PMH of depression, anxiety, and migraines; who presented to the ED with c/o slurred speech and a headache, and a code gutierrez was called upon her arrival d/t a facial droop; she was admitted for concern for TIA. - Patient Problems (1) Neurological deficit, transient Code(s): R29.818 - OTHER SYMPTOMS AND SIGNS INVOLVING THE NERVOUS SYSTEM Comment: - Deficits on arrival included dysarthria and left facial droop - CT brain and CTA head unremarkable; MRI brain unremarkable for intracranial abnormality - Appreciate Neurology consult; low suspicion for stroke, possibly r/t migraines ; recommends dual antiplatelet therapy for 1 month - Pending TTE - Continue aspirin, Plavix, atorvastatin (2) Migraines Code(s): G43.909 - MIGRAINE, UNSP, NOT INTRACTABLE, WITHOUT STATUS MIGRAINOSUS Comment: - Migraine this morning, resolved with morphine - Continue ibuprofen, Tylenol (3) Diabetes mellitus, type 2 Comment: - A1c 6.1% - Continue metformin (4) Anxiety and depression Code(s): F41.9 - ANXIETY DISORDER, UNSPECIFIED; F32.9 - MAJOR DEPRESSIVE DISORDER, SINGLE EPISODE, UNSPECIFIED Comment: - Hold lorazepam - Continue Abilify (5) DVT prophylaxis Comment: - SCDs (6) Full code status Code(s): Z78.9 - OTHER SPECIFIED HEALTH STATUS Comment: Status and Disposition: Observation. Anticipate d/c home when medically stable and workup is complete, likely Saturday. Attending: Yaya Long
[2018-10-11] MEDS ORDERED: Ibuprofen TAB* 600 MG PO PRN (15:53)
[2018-10-11] MEDS: Atorvastatin* 40 MG TAB PO SCH (20:10)
[2018-10-11] MEDS: ARIPiprazole TAB* 5 MG PO SCH (20:10)
[2018-10-11] MEDS: Gabapentin CAP(*) 300 MG PO SCH (20:10)
[2018-10-12 05:51] LABS: ABS Basophils 0.1 10^3/ul (0-0.2); ABS Eosinophils 0.2 10^3/ul (0-0.6); ABS Monocytes 0.4 10^3/ul (0-0.8); ABS Neutrophils 2.8 10^3/ul (1.5-7.7); ABS Nucleated RBC 0 10^3/ul; Eosinophil % 3.3 %; Hematocrit 27 % (35-47); Hemoglobin 8.3 g/dl (12.0-16.0); Lymphocyte % 36.6 %; Mean Corpuscular HGB Conc 30 g/dl (31-36); Mean Corpuscular Hemoglobin 17 pg (27-31); Mean Corpuscular Volume 56 fL (80-97); Mean Platelet Volume 8.3 fL (7.4-10.4); Nucleated Red Blood Cells % 0; Platelet Count 381 10^3/ul (150-450); Red Blood Count 4.83 10^6/ul (4.00-5.40); Red Cell Distribution Width 21 % (10.5-15); White Blood Count 5.4 10^3/ul (3.5-10.8)
[2018-10-12] MEDS: Acetaminophen TAB* 325 MG PO PRN (06:55)
[2018-10-12] MEDS: Clopidogrel TAB* 75 MG PO SCH (10:13)
[2018-10-12] MEDS: Aspirin 81 mg CHEW TAB* 81 MG TAB.CHEW PO SCH (10:13)
[2018-10-12] MEDS: metFORMIN* 500 MG TAB PO SCH ×2 (10:13→17:41)
[2018-10-12] MEDS: Ferrous Gluconate TAB* 324 MG TAB PO SCH (10:13)
--- NOTE | 2018-10-12 11:20 | ECHO ---
Patient: SAYRA ORTIZ [facility] Rec#: [id number] : 1965 Date: 10/12/2018 Age: 52y Height: 160.02 cm / 63.0 in Weight: 100.24 kg / 220.9 lbs Sex: F BSA: 2.02 Room#: 431 Admit Date#: 10/11/2018 Type: Inpatient Referring: Cynthia Cavazos Reading: Peterson Venegas MD [employer] Sales Representative: Harmony Villagran RDCS CC: Dereck Chappell MD CC: Osiel Ricketts Transthoracic Echocardiogram Indication: TIA BP: 124/54 HR: 107 Rhythm: Tachycardia Findings History: Admitted with TIA,depression,anxiety,facial droop,anemia. Technical Comments: The study quality is good. Completed at 0930. Left Ventricle: The left ventricular chamber size is normal. Global left ventricular wall motion and contractility are within normal limits. There is normal left ventricular systolic function. The estimated ejection fraction is 60-65%. There is no consistent Doppler evidence of clinically significant diastolic dysfunction. Left Atrium: The left atrial chamber size is normal. Right Ventricle: The right ventricular cavity size is normal. The right ventricular global systolic function is normal. Right Atrium: The right atrial cavity size is normal. A patent foramen ovale is visualized. A patent foramen ovale is demonstrated by agitated contrast. which appears to be small to moderate sized. Noted with Valsalva maneuver. Image 60. Aortic Valve: The aortic valve structure is not well visualized. There is no evidence of aortic regurgitation. There is no evidence of aortic stenosis. Mitral Valve: The mitral valve leaflets are mildly thickened. There is a trace of mitral regurgitation. Tricuspid Valve: The tricuspid valve leaflets are normal. There is trace to mild tricuspid regurgitation. There is evidence of mild pulmonary hypertension. Pulmonic Valve: The pulmonic valve appears normal in structure and function. There is no evidence of pulmonic regurgitation. There is no pulmonic stenosis. Pericardium: The pericardium appears normal. There is no significant pericardial effusion. Aorta: The ascending aorta is not well visualized. There is no dilatation of the aortic arch. There is no dilation of the aortic root. Pulmonary Artery: The main pulmonary artery is not well visualized. Venous: The venous system is not well visualized. Contrast: Normal saline was used as contrast for the bubble study. Intravenous contrast was used to help determine presence of intracardiac shunting. Intravenous agitated saline contrast was used to assess intracardiac shunting. Conclusions There is normal left ventricular systolic function. The estimated ejection fraction is 60-65%. Global left ventricular wall motion and contractility are within normal limits. Normal cardiac chamber sizes. Functionally benign heart valves. Mild pulmonary hypertension. A patent foramen ovale is demonstrated by agitated contrast which appears to be small to moderate sized and is noted with the Valsalva maneuver. There is no prior echocardiogram available to compare with at this time. Measurements Name Value Normal Range RVIDd (AP) 2D 2.9 cm (0.9 - 2.6) RVDdMajor (2D) 4.1 cm (2.2 - 4.4) RAd ISD 4CH 4.9 cm (3.4 - 4.9) RA (A4C)W 4.4 cm (2.9 - 4.6) IVSd (2D) 1 cm (0.6 - 1) LVPWd (2D) 0.9 cm (0.6 - 1) LVIDd (2D) 3.9 cm (3.6 - 5.4) LVIDs (2D) 2.5 cm - LV FS (2D) 36 % (25 - 45) Aortic Annulus 2.5 cm (1.4 - 2.6) Ao root diameter (2D) 3.3 cm (2.1 - 3.5) Aortic arch 2.9 cm (1.8 - 3.4) LA dimension (AP) 2D 3 cm (2.3 - 3.8) LAd ISD 4CH 5.9 cm (2.9 - 5.3) LA ISD 4CH W 4.2 cm (2.5 - 4.5) Name Value Normal Range LA ESV SP 4CH (A/L) 55 ml - LA ESV SP 2CH (A/L) 87 ml - LA ESV BP (A/L) 70 ml - LA ESV BP (A/L) index 34.84 ml/m2 - LA ESV SP 4CH (MOD) 52 ml - LA ESV SP 2CH (MOD) 82 ml - Name Value Normal Range MV E-wave Vmax 0.9 m/sec - MV deceleration time 259 msec - MV A-wave Vmax 0.8 m/sec - MV E:A ratio 1.26 ratio - LV septal e' Vmax 0.08 m/sec - LV lateral e' Vmax 0.17 m/sec - LV E:e' septal ratio 11.25 ratio - LV E:e' lateral ratio 5.29 ratio - Name Value Normal Range AV Vmax 1.4 m/sec - AV VTI 34.2 cm - AV peak gradient 7.47 mmHg - AV mean gradient 3.83 mmHg - LVOT Vmax 1.3 m/sec - LVOT VTI 30.6 cm - LVOT peak gradient 6.97 mmHg - LVOT mean gradient 3.1 mmHg - Name Value Normal Range TR Vmax 2.8 m/sec - TR peak gradient 32 mmHg - RAP 8 mmHg - RVSP 40 mmHg - Name Value Normal Range PV Vmax 0.5 m/sec - PV peak gradient 1 mmHg -
--- NOTE | 2018-10-12 16:42 | PN ---
Subjective Date of Service: 10/12/18 Interval History: Ms. Loaiza is feeling well today. She offers no complaints. She has not had any recurrence in her neuro deficits, but did report a headache this morning which she described as frontal pressure. She denies CP, SOB, N/V, dizziness. Family History: Unchanged from Admission Social History: Unchanged from Admission Past Medical History: Unchanged from Admission Objective Active Medications: Acetaminophen (Tylenol Tab*) 650 mg PO Q6H PRN HEADACHE Aripiprazole (Abilify Tab*) 5 mg PO BEDTIME MARSHALL Aspirin (Aspirin 81 Mg Chew Tab*) 81 mg PO DAILY MARSHALL Atorvastatin Calcium (Lipitor*) 40 mg PO 2100 [facility] Clopidogrel Bisulfate (Plavix Tab*) 75 mg PO DAILY MARSHALL Ferrous Gluconate (Fergon Tab*) 324 mg PO DAILY MARSHALL Gabapentin (Neurontin Cap(*)) 300 mg PO BEDTIME MARSHALL Ibuprofen (Motrin Tab*) 600 mg PO Q8H PRN PAIN Metformin HCl (Glucophage*) 500 mg PO 0800,1700 MARSHALL Ondansetron HCl (Zofran Inj*) 4 mg IV Q6H PRN NAUSEA Vital Signs - 8 hr 10/12/18 11:15 Temperature 97.7 F Pulse Rate 60 Respiratory 16 Rate Blood Pressure 131/59 (mmHg) O2 Sat by Pulse 99 Oximetry Oxygen Devices in Use Now: None Appearance: Middle-aged female sitting in bed in NAD Eyes: No Scleral Icterus Ears/Nose/Mouth/Throat: Mucous Membranes Moist Neck: NL Appearance and Movements; NL JVP, Trachea Midline Respiratory: Symmetrical Chest Expansion and Respiratory Effort, Clear to Auscultation Cardiovascular: NL Sounds; No Murmurs; No JVD, RRR Abdominal: NL Sounds; No Tenderness; No Distention Extremities: No Edema Skin: No Rash or Ulcers Neurological: Alert and Oriented x 3, NL Sensation, NL Gait, NL Muscle Strength and Tone Lines/Tubes/Other Access: Clean, Dry and Intact Peripheral IV Nutrition: Taking PO's Result Diagrams: 10/12/18 04:51 10/11/18 04:12 Assess/Plan/Problems-Billing Assessment: Ms. Loaiza is a 52 yo F with PMH of depression, anxiety, and migraines; who presented to the ED with c/o slurred speech and a headache, and a code gutierrez was called upon her arrival d/t a facial droop; she was admitted for concern for TIA. - Patient Problems (1) Neurological deficit, transient Code(s): R29.818 - OTHER SYMPTOMS AND SIGNS INVOLVING THE NERVOUS SYSTEM Comment: - Deficits on arrival included dysarthria and left facial droop - CT brain and CTA head unremarkable; MRI brain unremarkable for intracranial abnormality - Echo shows small to moderate PFO; US bilat LE unremarkable for DVT - Appreciate Neurology consult; low suspicion for stroke, possibly complicated migraine; recommends dual antiplatelet therapy for 1 month - Continue aspirin, Plavix, atorvastatin (2) Migraines Code(s): G43.909 - MIGRAINE, UNSP, NOT INTRACTABLE, WITHOUT STATUS MIGRAINOSUS Comment: - Migraine this morning, resolved with morphine - Continue ibuprofen, Tylenol (3) Diabetes mellitus, type 2 Comment: - A1c 6.1% - Continue metformin (4) Iron deficiency anemia Code(s): D50.9 - IRON DEFICIENCY ANEMIA, UNSPECIFIED Comment: - Stable since 01/2018; asymptomatic - Would likely benefit from endoscopic workup if she has not already had one - Continue ferrous gluconate (5) Anxiety and depression Code(s): F41.9 - ANXIETY DISORDER, UNSPECIFIED; F32.9 - MAJOR DEPRESSIVE DISORDER, SINGLE EPISODE, UNSPECIFIED Comment: - Hold lorazepam - Continue Abilify (6) DVT prophylaxis Comment: - SCDs (7) Full code status Code(s): Z78.9 - OTHER SPECIFIED HEALTH STATUS Comment: Status and Disposition: Observation. Anticipate d/c home tomorrow morning. Attending: Yaya Long
[2018-10-12] MEDS: Gabapentin CAP(*) 300 MG PO SCH (22:04)
[2018-10-12] MEDS: Atorvastatin* 40 MG TAB PO SCH (22:05)
[2018-10-12] MEDS: ARIPiprazole TAB* 5 MG PO SCH (22:05)
--- NOTE | 2018-10-12 22:23 | DS ---
CC: Dr. Genaro Chappell; Dr. Osiel Ricketts * DISCHARGE SUMMARY: DATE OF ADMISSION: 10/11/18 DATE OF DISCHARGE: 10/13/18 (this is being dictated in advance). PRIMARY CARE PROVIDER: Dr. Genaro Chappell. ATTENDING PHYSICIAN: Dr. Yaya Long * (dictated by Janneth Cha NP). PRIMARY DIAGNOSES: Transient neurological deficits, transient ischemic attack versus complicated migraine. SECONDARY DIAGNOSES: 1. Diabetes mellitus, type 2. 2. Iron deficiency anemia. 3. Anxiety and depression. STUDIES WHILE IN THE HOSPITAL: 1. Brain CT on 10/11/18, reads as no acute intracranial process visualized. 2. Chest x-ray on 10/11/18, reads as no evidence for acute disease. 3. EKG on 10/11/18, shows normal sinus rhythm with a rate of 66, QTc 437, no ischemic changes. 4. Head CTA on 10/11/18, reads as no hemodynamically significant stenosis or large- vessel occlusion. No hemodynamically significant stenosis. 5. Brain MRI on 10/11/18, reads as no evidence for acute intracranial abnormality. Findings suggestive of chronic sinusitis. 6. Transthoracic echocardiogram on 10/12/18, reads as there is normal left ventricular systolic function. The estimated ejection fraction is 60% to 65%. Global left ventricular wall motion and contractility are within normal limits. Normal cardiac chamber sizes. Functionally benign heart valves. Mild pulmonary hypertension. A patent foramen ovale is demonstrated by agitated contrast, which appeared to be [id number] size, and is noted with the Valsalva maneuver. There is no prior echocardiogram to compare with at this time. 7. Bilateral lower extremity ultrasound reads as no evidence for deep vein thrombosis. HISTORY OF PRESENT ILLNESS AND HOSPITAL COURSE: Ms. Loaiza is a 52-year-old female with past medical history of diabetes, depression, anxiety, iron deficiency, and migraines, who presented to the emergency room on 10/11/18 with complaints of slurred speech and headache. Please see the history and physical by Dr. Cavazos for a complete summary of the events leading up to this hospitalization. In short, the patient noted that she woke in the morning and had slurred speech, lasting approximately 30 minutes. Later in the day, the patient's sister felt as though she had a facial droop. Subsequently, the patient developed a headache, which she reported as a migraine headache and she reported it was typical for her. She presented to the emergency room where a Code Syed was called. She was noted to have a slight left facial droop; otherwise, she did not score on the NIH Stroke Scale. She had imaging as noted above and there were no acute findings. She had lab work, which was significant for a microcytic hypochromic anemia consistent with the patient's baseline, and a lipid panel revealing triglycerides of 240, total cholesterol of 165, LDL of 75, and HDL of 42. She was admitted by the hospitalist service because of the concern for a TIA. The patient had an uneventful night and was seen in consultation by Dr. Ricketts from Neurology, on 10/11/18. Dr. Ricketts felt as though she warranted a stroke workup with an MRI and echocardiogram. He felt as though the differential could include complicated migraines. He had a low suspicion for seizures. He recommended continuing aspirin and Plavix for 30 days and then transitioning the patient to just aspirin. He also recommended treating lipids aggressively with a statin and monitoring blood pressure as an outpatient. During this admission, the patient's symptoms have not recurred. She has had multiple episodes of what she called migraines though they sound more to be consistent with tension-type headaches. These are resolved with acetaminophen or ibuprofen. She did have an echocardiogram on 10/12/18 as noted above and she was found to have a [id number] size PFO, I did speak with Dr. Ricketts, who advised that the patient would need an ultrasound of the bilateral lower extremity to rule out DVT, and that if there was no evidence of DVT, she may be discharged from a neurological standpoint. The patient did have the ultrasound as noted above and it was unremarkable, though at this point, the patient requested to stay another night in the hospital as the results of the tests were not obtained until later in the evening, and she did not have a ride home. The patient was noted to have a hemoglobin A1c of 6.1% indicating excellent blood sugar control. On exam, she has no focal neurological deficits. Speech is normal. Strength and gait are normal. She is understanding of her diagnosis and the importance for followup. Ms. Loaiza is stable for discharge. Vital signs are as follows: Temp 97.7, heart rate 68, respiratory rate 16, oxygen saturation 99% on room air, blood pressure 131/59. DISCHARGE MEDICATIONS: New medications: 1. Atorvastatin 40 mg p.o. daily. 2. Clopidogrel 75 mg p.o. daily. 3. Aspirin 81 mg p.o. daily. Continued medications: 1. Abilify 5 mg p.o. at bedtime. 2. Ferrous gluconate 324 mg p.o. daily. 3. Gabapentin 300 mg p.o. at bedtime. 4. Metformin 500 mg p.o. b.i.d. 5. Lorazepam 1 mg p.o. q.12 hours p.r.n. anxiety. DISCHARGE PLAN: Ms. Loaiza will be discharged home. Activity will be as tolerated. Diet should be diabetic and heart healthy. Medications are noted above. The patient will need to be on dual-antiplatelet therapy for 30 days with clopidogrel and aspirin. After 30 days, she may stop taking the clopidogrel, but should continue taking the aspirin. She has also been prescribed a moderate- intensity statin. She can continue her other usual medications. She will need to follow up with Dr. Ricketts in approximately 12 weeks. She will need to follow up with her primary care provider in 4 to 7 days. I will note that the patient remains significantly anemic though this is consistent with her baseline. I would recommend that she have further workup including endoscopic workup to rule out any other causes for this iron deficiency anemia. She has been advised to return to the emergency room or nearest hospital for any worsening of symptoms, shortness of breath, lightheadedness, dizziness, chest discomfort, high fevers, chills, night sweats , loss of consciousness, or any other worrisome signs or symptoms. This is a summarized report of a complex medical history and hospital stay. For further details, please see the entire medical record. TIME SPENT: Approximately 45 minutes was spent on this discharge. JANNETH CHA, WORKDAY MANAGER [id number]/[facility] #: [id number] BAR
[2018-10-13 04:23] VITALS: BP 132/51
[2018-10-13] MEDS: Ferrous Gluconate TAB* 324 MG TAB PO SCH (07:54)
[2018-10-13] MEDS: Aspirin 81 mg CHEW TAB* 81 MG TAB.CHEW PO SCH (07:54)
[2018-10-13] MEDS: metFORMIN* 500 MG TAB PO SCH (07:54)
[2018-10-13] MEDS: Clopidogrel TAB* 75 MG PO SCH (07:54)
== END 2018-10-13 10:06 | disposition home or self-care (01) ==
LOC: ED 03:44 → MEDTELE 05:23
PROVIDERS: ADMIT Internal Medicine; ATTEND Student in an Organized Health Care Education/Training Program
DX: R29.818 Other symptoms and signs involving the nervous system (principal); G43.909 Migraine, unspecified, not intractable, without status migrainosus; E11.9 Type 2 diabetes mellitus without complications; D50.9 Iron deficiency anemia, unspecified; R47.81 Slurred speech; R42 Dizziness and giddiness; F32.9 Major depressive disorder, single episode, unspecified; F41.9 Anxiety disorder, unspecified; Z88.0 Allergy status to penicillin; Z79.82 Long term (current) use of aspirin; F31.9 Bipolar disorder, unspecified
CPT/HCPCS: 36415; 70450; 70496; 70498; 70551; 71045; 80053; 80061; 81003; 83036; 84484; 85025; 85610; 85730; 93005; 93306; 93970; 96374; 96375; 99285; A9270-GY; G0378; J2270; J2405; J2765; Q9967

== ENCOUNTER 2019-03-27 14:44 | Emergency (ER) | payer BC, MEDICAID ==
[2019-03-27 15:05] VITALS: BP 122/48
--- NOTE | 2019-03-27 15:17 | UC ---
Lower Extremity/Ankle HPI - HPI Summary HPI Summary: 53-year-old female who dropped approximately 6 large Cook books on her right foot approximately 30-45 minutes ago. She complains of pain to the distal dorsum. - History of Current Complaint Chief Complaint: UCLowerExtremity Stated Complaint: RT FOOT INJURY Time Seen by Provider: 03/27/19 15:00 Hx Obtained From: Patient Hx Last Menstrual Period: 03/27/19 ?: No Onset/Duration: Sudden Onset Severity Initially: Moderate Severity Currently: Moderate Pain Intensity: 9 Aggravating Factor(s): Ambulation Alleviating Factor(s): Rest, Elevation Able to Bear Weight: Yes - Allergies/Home Medications Allergies/Adverse Reactions: Allergies Allergy/AdvReac Type Severity Reaction Status Date / Time Fish Containing Products Allergy Hives/Diff. Verified 03/27/19 15:06 Breathing/I tching PMH/Surg Hx/FS Hx/Imm Hx Previously Healthy: Yes Endocrine History: Diabetes Other History Of: Negative For: Anticoagulant Therapy - Surgical History Surgical History: Yes Surgery Procedure, Year, and Place: CYST REMOVED - Family History Known Family History: Positive: Hypertension - Social History Alcohol Use: Rare Substance Use Type: None Smoking Status (MU): Never Smoked Tobacco Household Exposure Type: Cigarettes - Immunization History Most Recent Influenza Vaccination: 08/06/18 Most Recent Pneumonia Vaccination: n/a Review of Systems All Other Systems Reviewed And Are Negative: Yes Motor: Positive: Negative Neurovascular: Positive: Negative Musculoskeletal: Positive: Edema, Other: - Patient has some foot and ankle swelling as a result of the injury as well as pain over the distal dorsum. Is Patient Immunocompromised?: No Physical Exam Triage Information Reviewed: Yes Appearance: Well-Appearing, No Pain Distress, Well-Nourished, Obese Vital Signs: Initial Vital Signs Temp 99.5 F 03/27/19 14:58 Pulse 69 03/27/19 14:58 Resp 12 03/27/19 14:58 BP 122/48 03/27/19 14:58 Pulse Ox 98 03/27/19 14:58 Vital Signs Reviewed: Yes Musculoskeletal: Positive: Strength Intact, ROM Intact, Other: - Pain with a small indentation over the distal dorsum of her right foot more at the site of the fourth metatarsal. No bruising is noted. Good peripheral pulses neuro sensation and capillary refill. Neurological: Positive: Alert, Muscle Tone Normal Psychological Exam: Normal Skin Exam: Normal Lower Extremity Course/Dx - Course Course Of Treatment: Right foot x-ray:FINDINGS: There is diffuse soft tissue swelling. The bones are in normal alignment. No fracture is seen. Joint spaces appear maintained. IMPRESSION: NO EVIDENCE FOR FRACTURE, IF THE PATIENT'S SYMPTOMS PERSIST RECOMMEND FOLLOW-UP IMAGING. - Differential Dx/Diagnosis Provider Diagnosis: Contusion of foot Discharge - Sign-Out/Discharge Documenting (check all that apply): Patient Departure All imaging exams completed and their final reports reviewed: Yes - Discharge Plan Condition: Fair Disposition: HOME Patient Education Materials: Contusion in Adults (ED) Forms: *Work Release Referrals: No Primary Care Phys,NOPCP [Primary Care Provider] - Antolin Mallory MD [Medical Doctor] - Additional Instructions: Apply ice and elevate intermittently over the weekend. Tylenol or Motrin for pain. Follow-up with the orthopedist if you have continued pain on Saturday or Saturday. You may walk as pain permits. - Billing Disposition and Condition Condition: FAIR Disposition: Home - Attestation Statements Provider Attestation: Per institutional requirements, I have reviewed the chart, however, I was not consulted specifically or made aware of this patient by the midlevel provider. I did not personally evaluate, interact with , or disposition this patient.
== END 2019-03-27 16:00 | disposition home or self-care (01) ==
LOC: UCEAST 14:44
DX: S90.31XA Contusion of right foot, initial encounter (principal); W22.8XXA Striking against or struck by other objects, initial encounter; Y92.010 Kitchen of single-family (private) house as the place of occurrence of the external cause; E11.9 Type 2 diabetes mellitus without complications
CPT/HCPCS: 99213; G0463